=== PATIENT | female | born 1950 | race Caucasian/White ===

== ENCOUNTER 2020-05-02 11:01 | Outpatient (CLI) | payer MEDICARE, SELFPAY ==
[2020-05-02 11:20] LABS: Basophils Percent Auto 0.8 % (0.2-1.2); Eosinophils Absolute Auto 0.1 K/mm3 (0-0.3); Eosinophils Percent Auto 2.1 % (0-4.4); Hematocrit 40.5 % (37.0-47.0); Immature Granulocyte Absolute 0.01 K/mm3 (0.00-0.031); Immature Granulocyte Percent A 0.2 % (0-0.5); Lymphocytes Absolute Auto 1.96 K/mm3 (0.9-3.2); Lymphocytes Percent Auto 40.5 % (18.3-44.2); Mean Corpuscular HGB Conc 32.1 g/dl (32-36); Mean Corpuscular Volume 93.3 fl (80-100); Mean Platelet Volume 10.4 fl (7.4-10.4); Monocytes Absolute Auto 0.4 K/mm3 (0.1-0.6); Monocytes Percent Auto 9.1 % (2.6-8.5); Neutrophils Absolute Auto 2.3 K/mm3 (1.3-6.7); Neutrophils Percent Auto 47.3 % (45.5-73.1); Platelet Count Result 180 k/mm3 (150-375); Red Blood Count 4.34 M/mm3 (4.2-5.4); Red Cell Distribution Width 13.2 % (11.5-14.5); White Blood Count 4.8 K/mm3 (4.5-10.0)
[2020-05-02 12:02] LABS: Iron 83 ug/dL (37-170)
[2020-05-02 12:06] LABS: Alanine Aminotransferase 23 U/L (4-35); Albumin Level 4.2 g/dL (3.5-5.1); Alkaline Phosphatase 92 U/L (38-126); Aspartate Amino Transferase 28 U/L (14-36); Bilirubin,Total 0.5 mg/dL (0.2-1.3); Blood Urea Nitrogen 27 mg/dL (7-17); Calcium 9.4 mg/dL (8.4-10.2); Carbon Dioxide 30 mmol/L (22-30); Chloride 102 mmol/L (98-107); Estimated Glomerular Filt Rate > 60; Glucose 100 mg/dL (65-105); Potassium 4.4 mmol/L (3.4-5.0); Sodium 135 mmol/L (137-145)
[2020-05-02 12:12] LABS: Percent Iron Saturation 29 % (20-50)
== END 2020-05-02 11:02 | disposition home or self-care (01) ==
PROVIDERS: PCP Family Medicine; Visit Provider Internal Medicine Hematology & Oncology
DX: D50.9 Iron deficiency anemia, unspecified (principal)
CPT/HCPCS: 36415; 80053; 82728; 83540; 83550; 85025

== ENCOUNTER 2020-05-21 20:09 | Emergency (ER) | payer MEDICARE, SELFPAY ==
--- NOTE | ~2020-05-21 | CT_ITS ---
EXAMINATION: CT abdomen pelvis w con DATE: 05/21/2020 22:12 INDICATION: Abdominal pain, nausea, vomiting, diarrhea TECHNIQUE: Computed tomography (CT) of the abdomen and pelvis was performed with 100 cc Omnipaque 350 intravenous contrast. Automated exposure control and iterative reconstruction technique were employe d. Exam dose: 522.86 mGy-cm total exam DLP. COMPARISON: 05/05/2018 PET/CT scan FINDINGS: There is mild discoid atelectasis or scarring in the lower lung zones. This examination andrew s not include the non-F-18 FDG-avid superior segment left lower lobe pulmonary nodule, noted on 2017 PET/CT scan, for which follow up CT examination was recommended to exclude any possibility of sl ow growing malignancy. Cardiomegaly. No pericardial or pleural effusion. Small sliding hiatal hernia. Approximately 2 cm right hepatic cyst. The gallbladder is present. No bile duct or pancreatic duct di latation. No pancreatic space-occupying mass lesion or calcification. Normal splenic size. Normal mor phology of the adrenal glands. No renal mass lesion or urinary tract calculus or hydroureteronephrosis. Pessary device is noted. The uterus and adnexal areas are otherwise unremarkable. Diverticulosis of the left and right colon; no CT evidence of diverticulitis. No bowel obstruction, b owel wall thickening, pneumatosis or intraperitoneal free air is evident. There is atherosclerotic calcification of the abdominal aorta and branches but no intraperitoneal or retroperitoneal or pelvic mass lesion or adenopathy or ascites is evident. Degenerative changes of the thoracic and lumbar spine are noted, including particularly prominent apo physeal joint degenerative changes with associated grade 1 anterolisthesis at the L4-5 level and to a lesser extent at L5-S1.. IMPRESSION: Hepatic cysts Small sliding hiatal hernia Diverticulosis of left and right colon; no CT evidence of diverticulitis Reviewed, dictated and finalized at [facility]. Reviewed, dictated and finalized at location B.
[2020-05-21 20:11] VITALS: BP 156/87; PULSE 73; RESP 16; TEMP 36.4; O2SAT 99
--- NOTE | 2020-05-21 20:33 | ED.NAVMDI ---
HPI - Nausea/Vomiting/Diarrhea General Chief complaint: Nausea/Vomiting/Diarrhea Stated complaint: n/v/d Time Seen by Provider: 05/21/20 20:15 Source: RN notes reviewed History of Present Illness HPI Narrative: Patient presents emergency department from home for nausea vomiting. Patient states that she is had 2 episodes today of nausea vomiting taking suppositories no relief. States she has a history of a Jenifer fundoplication 2 years ago for a hiatal hernia which did improve the hiatal hernia but still has mildly persistent hiatal hernia. States she is been noticing discomfort with eating approximately an hour after eating in the upper abdomen for the past several days. She denies any fevers or chills chest pain shortness of breath or any other symptoms. Related Data Allergies Allergy/AdvReac Type Severity Reaction Status Date / Time Sulfa (Sulfonamide Allergy Mild not Verified 01/03/20 14:43 Antibiotics) feeling well Review of Systems Review of Systems: Narrative: Gen.: Denies fevers or chills ENT: Denies congestion Respiratory: Denies shortness of breath or cough CV: Denies chest pain or palpitations GI: HPI denies burning, urgency, frequency or hematuria Musculoskeletal: Denies back pain or muscle pain Neuro: Denies numbness, tingling, weakness or focal weakness Skin: Denies rash Except as documented, all other systems reviewed and negative [facility] Past Medical History Medical History Barretts esophagus Hiatal hernia with gastroesophageal reflux Vitiligo Surgical History Surgical History (Updated 01/04/20 @ 20:57 by Lenka Gaspar MD) H/O vein stripping Family History Family History (Updated 01/04/20 @ 20:59 by Lenka Gaspar MD) Other Cerebrovascular accident Ovarian ca Social History Social History Social History: Smoking status: Never smoker Second hand tobacco smoke exposure: No Alcohol intake: never Substance use: never Substance use type: does not use Gender identity (if verbalized by the patient): Female Exam Narrative: Exam Narrative: APPEARANCE: No acute distress, nontoxic, resting in bed HEENT: Normocephalic, atraumatic, OMM RESPIRATORY: No respiratory distress, clear to auscultation bilaterally with no rhonchi wheezing or rales CARDIOVASCULAR: RRR s murmur ABDOMINAL: Soft, nondistended, tender palpation epigastric, right upper quadrant left upper quadrant, no tenderness right lower quadrant left lower quadrant no rebound or guarding MUSCULOSKELETAl: Moves all extremities. No clubbing, cyanosis or edema. NEURO: Awake and alert. Following commands, speech normal, no focal deficits SKIN:: Warm, dry. Normal Color PSYCHIATRIC: Normal affect/mood Course Course Emergency Course: Discussed with patient results of workup and diagnosis. Discussed need for follow-up with primary care, proper use of medication, and reasons to return to the emergency department. Patient understands and agrees to current treatment plan Vital Signs Vital signs: Vital Signs Temperature 97.5 F L 05/21/20 20:11 Pulse Rate 73 05/21/20 20:11 Respiratory Rate 16 05/21/20 20:11 Blood Pressure 156/87 H 05/21/20 20:11 Pulse Oximetry 99 05/21/20 20:11 Temperature 97.5 F L 05/21/20 20:11 Pulse Rate 73 05/21/20 22:10 Respiratory Rate 18 05/21/20 22:10 Blood Pressure 139/74 05/21/20 22:10 Pulse Oximetry 98 05/21/20 22:10 MDM - Nausea/Vomiting/Diarrhea MDM Narrative Medical decision making narrative: Patient's abdomen is soft without significant pain or signs of surgical abdomen on serial exams. Lab and x-ray evaluations are reviewed and patient is felt to be a reasonable candidate for outpatient management. Patient was instructed as to limitations of x-ray and laboratory evaluation and encouraged to return to ED or primary physi
[2020-05-21 20:49] LABS: Basophils Percent Auto 0.5 % (0.2-1.2); Eosinophils Absolute Auto 0.2 K/mm3 (0-0.3); Eosinophils Percent Auto 2.3 % (0-4.4); Hematocrit 41.2 % (37.0-47.0); Hemoglobin 13.5 g/dL (12.0-15.0); Immature Granulocyte Absolute 0.01 K/mm3 (0.00-0.031); Immature Granulocyte Percent A 0.2 % (0-0.5); Lymphocytes Absolute Auto 1.58 K/mm3 (0.9-3.2); Lymphocytes Percent Auto 23.7 % (18.3-44.2); Mean Corpuscular HGB Conc 32.8 g/dl (32-36); Mean Corpuscular Hemoglobin 30.4 pg (26-34); Mean Corpuscular Volume 92.8 fl (80-100); Mean Platelet Volume 10.5 fl (7.4-10.4); Monocytes Absolute Auto 0.5 K/mm3 (0.1-0.6); Monocytes Percent Auto 7.7 % (2.6-8.5); Neutrophils Absolute Auto 4.4 K/mm3 (1.3-6.7); Neutrophils Percent Auto 65.6 % (45.5-73.1); Platelet Count Result 205 k/mm3 (150-375); Red Blood Count 4.44 M/mm3 (4.2-5.4); Red Cell Distribution Width 13.2 % (11.5-14.5); White Blood Count 6.7 K/mm3 (4.5-10.0)
[2020-05-21 20:54] LABS: Prothrombin Time 12.9 Seconds (11.1-14.7)
[2020-05-21 20:56] LABS: Alanine Aminotransferase 41 U/L (4-35); Albumin Level 4.3 g/dL (3.5-5.1); Alkaline Phosphatase 114 U/L (38-126); Aspartate Amino Transferase 35 U/L (14-36); Bilirubin,Total 0.4 mg/dL (0.2-1.3); Blood Urea Nitrogen 24 mg/dL (7-17); Calcium 9.2 mg/dL (8.4-10.2); Carbon Dioxide 29 mmol/L (22-30); Chloride 100 mmol/L (98-107); Estimated Glomerular Filt Rate > 60; Glucose 124 mg/dL (65-105); Lipase 36 U/L (23-300); Potassium 4.1 mmol/L (3.4-5.0); Sodium 135 mmol/L (137-145)
[2020-05-21] MEDS: SODIUM CHLORIDE 0.9% IV 1,000 ML 999 ML IV CONT (21:01)
[2020-05-21] MEDS: ONDANSETRON INJ 4 MG/2 ML VIAL IV PUSH (21:01)
[2020-05-21 21:37] LABS: Add Urine Microscopic? YES; Appearance Urine Cloudy (Clear); Bacteria Urine Trace /hpf; Bilirubin Urine Negative (Negative); Blood Urine 1+ (Negative); Color Urine Straw (Yellow); Glucose Urine UA Negative (Negative); Ketones Urine Negative (Negative); Leukocyte Esterase Ur 3+ LEU/UL (Negative); Nitrate Urine Negative (Negative); Protein Urine Negative (Negative); Renal Epithelial Cells Urine Rare /hpf (None Seen); Specific Grav Ur 1.014 (1.001-1.035); Squamous Epithelial Cell Urine Few /hpf (Few); Urobilinogen Urine Negative mg/dL (<2.0); WBC Clumps Urine Present /HPF; WBC Urine >75 /hpf
[2020-05-21 22:10] VITALS: BP 139/74; PULSE 73; RESP 18; O2SAT 98
[2020-05-21] MEDS: NITROFURANTOIN MONOHYD MACROCR 100 MG CAP PO (23:17)
--- NOTE | 2020-05-21 23:23 | PC.NURSE ---
Patient discharged at 2324 on 05/21/2020.
== END 2020-05-21 23:23 | disposition home or self-care (01) ==
PROVIDERS: Emergency Provider Emergency Medicine; PCP Family Medicine
DX: N39.0 Urinary tract infection, site not specified (principal); R11.2 Nausea with vomiting, unspecified; K22.70 Barrett's esophagus without dysplasia; K44.9 Diaphragmatic hernia without obstruction or gangrene; R10.13 Epigastric pain; K76.89 Other specified diseases of liver; K57.90 Diverticulosis of intestine, part unspecified, without perforation or abscess without bleeding
CPT/HCPCS: 36415; 74177; 80053; 81001; 83690; 85025; 85610; 85730; 87086; 87088; 96361; 96374; 96375; 99284; A9270; J0131; J2405; J7030; Q9967

== ENCOUNTER 2020-05-26 12:40 | Outpatient (CLI) | payer MEDICARE, SELFPAY ==
[2020-05-26 14:51] LABS: Free T4 Free Thyroxine 1.78 ng/mL (0.78-2.19)
[2020-05-31 12:09] LABS: Triiodothyronine T3 Free 2.4 pg/mL (2.3-4.2)
== END 2020-05-26 12:41 | disposition home or self-care (01) ==
LOC: ANHLAB 12:42
PROVIDERS: PCP Family Medicine; Visit Provider Internal Medicine Hematology & Oncology
DX: E03.9 Hypothyroidism, unspecified (principal)
CPT/HCPCS: 36415; 84439; 84443; 84481

== ENCOUNTER 2020-06-02 06:58 | Outpatient (CLI) | payer MEDICARE, SELFPAY ==
--- NOTE | ~2020-06-02 | CT_ITS ---
EXAMINATION: CT chest w con DATE: 06/02/2020 07:37 INDICATION: Incidental lung nodule follow-up TECHNIQUE: Computed tomography (CT) of the chest was performed with 75 cc Omnipaque 350 intravenous c ontrast. Automated exposure control and iterative reconstruction technique were employed. Exam dose: 157.38 mGy-cm total exam DLP. COMPARISON: 05/03/2019 CT chest FINDINGS: There is a stable 8 mm nodule in the superior segment of the left lower lobe (series 4 imag e 53), not significantly changed in size since 04/22/2018, favoring benign diagnosis. Up to 160 [facility] unit reading suggest calcification, likely a calcified pulmonary granuloma. However, IV contrast material enhancement might simulate calcification. Consider noncontrast CT chest imaging follow-up in 1 year. The lungs are clear of infiltrate or consolidation. No hilar or mediastinal mass lesion or lymphadeno pam. No thoracic aortic aneurysm or dissection. Normal heart size. No pericardial or pleural effusion. Small sliding hiatal hernia. 18 mm right posteromedial hepatic cyst. Included skeletal structures are unremarkable other than degenerative spurring of the thoracic spine. IMPRESSION: Stable 8 mm left lower lobe nodule, likely a calcified pulmonary granuloma; consider [address] noncontrast chest follow-up examination Reviewed, dictated and finalized at [facility]. Reviewed, dictated and finalized at location A. IMPRESSION: Stable 8 mm left lower lobe nodule, likely a calcified pulmonary g ranuloma; consider [address] noncontrast chest follow-up examination
== END 2020-06-02 06:59 | disposition home or self-care (01) ==
PROVIDERS: PCP Family Medicine; Visit Provider Internal Medicine Hematology & Oncology
DX: K44.9 Diaphragmatic hernia without obstruction or gangrene (principal); R91.8 Other nonspecific abnormal finding of lung field
CPT/HCPCS: 71260; Q9967

== ENCOUNTER → 2020-10-13 08:27 | Outpatient (CLI) | payer MEDICARE, SELFPAY ==
--- NOTE | ~2020-10-13 | MM_ITS ---
EXAMINATION: MM screening hugo BI w nury HISTORY: Screening mammogram TECHNIQUE: Craniocaudal and mediolateral oblique 3-D tomosynthesis images were obtained and synthetic 2-D images were generated. CAD analysis was submitted and interpreted. COMPARISON: 04/21/2019, 06/05/2017, 03/14/2000 bilateral digital screening mammogram examinations BREAST PARENCHYMAL COMPOSITION: There are scattered areas of fibroglandular density. FINDINGS: Occasional benign calcifications are again noted. Stable mild fibroglandular asymmetry. The re is no evidence of suspicious mass, calcification, or architectural distortion to suggest malignanc y in either breast. There has been no suspicious interval change. IMPRESSION: 1. No mammographic evidence of malignancy. 2. Recommend routine screening mammography in one year. BI-RADS Category 2: Benign finding(s). Reviewed, dictated and finalized at location A. ONAL COMPUTER SPECIALIST
== END ==
PROVIDERS: PCP Family Medicine; Visit Provider Family Medicine
DX: Z12.31 Encounter for screening mammogram for malignant neoplasm of breast (principal)
CPT/HCPCS: 77063; 77067

== ENCOUNTER 2020-11-27 09:35 | Outpatient (CLI) | payer MEDICARE, SELFPAY ==
[2020-11-27 09:52] LABS: Basophils Absolute Auto 0.1 K/mm3 (0.0-0.1); Basophils Percent Auto 1.1 % (0.2-1.2); Eosinophils Absolute Auto 0.1 K/mm3 (0-0.3); Eosinophils Percent Auto 2.2 % (0-4.4); Hematocrit 44.3 % (37.0-47.0); Hemoglobin 14.2 g/dL (12.0-15.0); Immature Granulocyte Absolute 0.01 K/mm3 (0.00-0.031); Immature Granulocyte Percent A 0.2 % (0-0.5); Lymphocytes Absolute Auto 1.79 K/mm3 (0.9-3.2); Lymphocytes Percent Auto 40.1 % (18.3-44.2); Mean Corpuscular HGB Conc 32.1 g/dl (32-36); Mean Corpuscular Hemoglobin 29.6 pg (26-34); Mean Corpuscular Volume 92.5 fl (80-100); Mean Platelet Volume 10.2 fl (7.4-10.4); Monocytes Absolute Auto 0.5 K/mm3 (0.1-0.6); Monocytes Percent Auto 10.5 % (2.6-8.5); Neutrophils Percent Auto 45.9 % (45.5-73.1); Platelet Count Result 209 k/mm3 (150-375); Red Blood Count 4.79 M/mm3 (4.2-5.4); White Blood Count 4.5 K/mm3 (4.5-10.0)
[2020-11-27 11:28] LABS: Iron 76 ug/dL (37-170)
[2020-11-27 11:38] LABS: Alanine Aminotransferase 29 U/L (4-35); Albumin Level 4.3 g/dL (3.5-5.1); Alkaline Phosphatase 92 U/L (38-126); Aspartate Amino Transferase 29 U/L (14-36); Bilirubin,Total 0.6 mg/dL (0.2-1.3); Blood Urea Nitrogen 19 mg/dL (7-17); Calcium 9.6 mg/dL (8.4-10.2); Carbon Dioxide 31 mmol/L (22-30); Chloride 101 mmol/L (98-107); Estimated Glomerular Filt Rate > 60; Glucose 94 mg/dL (65-105)
[2020-11-27 11:40] LABS: Percent Iron Saturation 24 % (20-50)
[2020-11-27 11:47] LABS: Free T4 Free Thyroxine 1.91 ng/mL (0.78-2.19)
[2020-11-27 11:58] LABS: Thyroid Stimulating Hormone 0.198 uIU/mL (0.465-4.680)
[2020-11-27 14:12] LABS: Anion Gap 5 mmol/L (8-16); Potassium 4.5 mmol/L (3.4-5.0); Sodium 137 mmol/L (137-145)
== END 2020-11-27 09:36 | disposition home or self-care (01) ==
LOC: ANHLAB 09:37
PROVIDERS: PCP Family Medicine; Visit Provider Internal Medicine Hematology & Oncology
DX: D50.9 Iron deficiency anemia, unspecified (principal); E03.9 Hypothyroidism, unspecified
CPT/HCPCS: 36415; 80053; 83540; 83550; 84439; 84443; 84481; 85025

== ENCOUNTER 2021-01-29 08:01 | Outpatient (CLI) | payer MEDICARE, SELFPAY | END 2021-01-29 08:02 | disposition home or self-care (01) | LOC: ANHCOVIDVC 08:02 | PROVIDERS: PCP Family Medicine | DX: Z23 Encounter for immunization (principal) | CPT/HCPCS: 0001A; 91300 ==

== ENCOUNTER 2021-02-19 08:11 | Outpatient (CLI) | payer MEDICARE, SELFPAY | END 2021-02-19 08:12 | disposition home or self-care (01) | LOC: ANHCOVIDVC 08:11 | PROVIDERS: PCP Family Medicine | DX: Z23 Encounter for immunization (principal) | CPT/HCPCS: 0001A; 0002A; 91300 ==

== ENCOUNTER 2021-06-07 09:28 | Outpatient (CLI) | payer MEDICARE, SELFPAY ==
--- NOTE | ~2021-06-07 | CT_ITS ---
EXAMINATION: CT diagnostic chest w con DATE: 06/07/2021 10:33 INDICATION: Lung nodule TECHNIQUE: Computed tomography (CT) of the chest was performed with 75 cc Omnipaque 350 intravenous c ontrast. Automated exposure control and iterative reconstruction technique were employed. Exam dose: 158.32 mGy-cm total exam DLP. COMPARISON: 06/02/2020 CT chest FINDINGS: 10 mm left lower lobe pulmonary nodule contains very prominent central calcification, consi stent with calcified pulmonary granuloma. Stable 4.5 mm opacity is noted in the lingula (series 4 image 57). Chronic discoid scarring in both lower lobes, more prominent on the right No pulmonary infiltrate or consolidation or pulmonary mass lesion is detected. No hilar or mediastinal mass lesion or lymphadenopathy. Normal heart size. No thoracic aortic aneurysm or dissection. No pericardial or pleural effusion. Small sliding hiatal hernia. Diffuse hepatic steatosis. 2 cm right hepatic cyst. Normal morphology of the adrenal glands. Bilateral fat-containing foramen of Bochdalek hernias. No suspicious osteolytic or osteoblastic lesions. Degenerative changes of the cervical, thoracic and lumbar spine. IMPRESSION: 1 cm calcified left lower lobe pulmonary granuloma Stable 4.5 mm lingular opacity No further CT lung follow-up is necessary. Small sliding hiatal hernia Hepatic steatosis 2 cm right hepatic cyst Reviewed, dictated and finalized at [facility]. Reviewed, dictated and finalized at location A.
[2021-06-07 14:52] LABS: Estimated Glomerular Filt Rate > 60
== END 2021-06-07 09:29 | disposition home or self-care (01) ==
LOC: ANHIMG 09:32
PROVIDERS: PCP Family Medicine; Visit Provider Internal Medicine Hematology & Oncology
DX: R91.1 Solitary pulmonary nodule (principal); K76.0 Fatty (change of) liver, not elsewhere classified; K44.9 Diaphragmatic hernia without obstruction or gangrene; K76.89 Other specified diseases of liver
CPT/HCPCS: 36415; 71260; 80053; 85025; Q9967

== ENCOUNTER 2021-06-07 10:44 | Outpatient (CLI) | payer MEDICARE, SELFPAY ==
[2021-06-07 11:02] LABS: Basophils Percent Auto 0.9 % (0.2-1.2); Eosinophils Absolute Auto 0.1 K/mm3 (0-0.3); Eosinophils Percent Auto 2.1 % (0-4.4); Hematocrit 41.2 % (37.0-47.0); Hemoglobin 13.4 g/dL (12.0-15.0); Immature Granulocyte Absolute 0.01 K/mm3 (0.00-0.031); Immature Granulocyte Percent A 0.2 % (0-0.5); Lymphocytes Absolute Auto 1.52 K/mm3 (0.9-3.2); Lymphocytes Percent Auto 34.7 % (18.3-44.2); Mean Corpuscular HGB Conc 32.5 g/dl (32-36); Mean Corpuscular Hemoglobin 29.8 pg (26-34); Mean Corpuscular Volume 91.8 fl (80-100); Monocytes Absolute Auto 0.5 K/mm3 (0.1-0.6); Monocytes Percent Auto 11.4 % (2.6-8.5); Neutrophils Absolute Auto 2.2 K/mm3 (1.3-6.7); Neutrophils Percent Auto 50.7 % (45.5-73.1); Platelet Count Result 194 k/mm3 (150-375); Red Blood Count 4.49 M/mm3 (4.2-5.4); Red Cell Distribution Width 13.7 % (11.5-14.5); White Blood Count 4.4 K/mm3 (4.5-10.0)
[2021-06-07 13:23] LABS: Alanine Aminotransferase 44 U/L (4-35); Albumin Level 4.2 g/dL (3.5-5.1); Alkaline Phosphatase 121 U/L (38-126); Anion Gap 8 mmol/L (8-16); Aspartate Amino Transferase 30 U/L (14-36); Bilirubin,Total 0.6 mg/dL (0.2-1.3); Blood Urea Nitrogen 17 mg/dL (7-17); Calcium 9.6 mg/dL (8.4-10.2); Carbon Dioxide 28 mmol/L (22-30); Chloride 99 mmol/L (98-107); Estimated Glomerular Filt Rate > 60; Glucose 84 mg/dL (65-110); Potassium 4.3 mmol/L (3.4-5.0); Sodium 135 mmol/L (137-145)
== END 2021-06-07 10:45 | disposition home or self-care (01) ==
LOC: ANHLAB 10:48
PROVIDERS: PCP Family Medicine; Visit Provider Internal Medicine Hematology & Oncology
DX: E03.9 Hypothyroidism, unspecified (principal); R91.1 Solitary pulmonary nodule
CPT/HCPCS: 36415; 80053; 85025

== ENCOUNTER 2021-06-12 10:12 | Outpatient (CLI) | payer MEDICARE, SELFPAY ==
[2021-06-12 12:29] LABS: Free T4 Free Thyroxine 1.84 ng/mL (0.78-2.19)
[2021-06-15 05:47] LABS: Triiodothyronine T3 Free 2.5 pg/mL (2.3-4.2)
== END 2021-06-12 10:13 | disposition home or self-care (01) ==
LOC: ANHLAB 10:18
PROVIDERS: PCP Family Medicine; Visit Provider Internal Medicine Hematology & Oncology
DX: E03.9 Hypothyroidism, unspecified (principal)
CPT/HCPCS: 36415; 84439; 84443; 84481

== ENCOUNTER → 2022-01-02 16:12 | Outpatient (CLI) | payer MEDICARE, SELFPAY ==
--- NOTE | ~2022-01-02 | MM_ITS ---
EXAMINATION: MM screening hugo BI w nury HISTORY: Screening TECHNIQUE: Craniocaudal and mediolateral oblique 3-D tomosynthesis images were obtained and synthetic 2-D images were generated. CAD analysis was submitted and interpreted. COMPARISON: Comparison to multiple prior studies sequentially, with oldest reviewed study dated 12/28. BREAST PARENCHYMAL COMPOSITION: The breasts are heterogeneously dense, which may obscure small masses . FINDINGS: There is no evidence of suspicious mass, calcification, or architectural distortion to sugg est malignancy in either breast. There has been no suspicious interval change. IMPRESSION: 1. No mammographic evidence of malignancy. 2. Recommend routine screening mammography in one year. BI-RADS Category 1: Negative Reviewed, dictated and finalized at location A. HT INSPECTOR
== END ==
PROVIDERS: PCP Family Medicine; Visit Provider Family Medicine
DX: Z12.31 Encounter for screening mammogram for malignant neoplasm of breast (principal)
CPT/HCPCS: 77063; 77067

== ENCOUNTER → 2022-05-16 10:59 | Outpatient (CLI) | payer MEDICARE, SELFPAY ==
--- NOTE | ~2022-05-16 | DEXA_ITS ---
Bone Density Report Name: ANAND LUCIANO Age: 72 Sex: Female Ethnicity: White Date of : 1950 Indication: osteopenia; height loss; prior fracture; postmenopausal Referring Provider: YANG CASTILLO Study: Bone densitometry was performed. Exam Date: May 16, 2022 Accession number: [id number] Bone Density: Region BMD T-score Z-score Classification AP Spine (L1-L4) 0.963 -0.8 1.6 Normal Femoral Neck (Left) 0.700 -1.3 0.7 Osteopenia Total Hip (Left) 0.807 -1.1 0.6 Osteopenia Femoral Neck (Right) 0.692 -1.4 0.6 Osteopenia Total Hip (Right) 0.774 -1.4 0.4 Osteopenia Total Hip Mean 0.791 -1.3 0.5 Osteopenia World Health Organization criteria for BMD impression classify patients as: Normal (T-score at or above -1.0), Osteopenia (T-score between -1.0 and -2.5), or Osteoporosis (T-score at or below -2.5). 10-year Fracture Risk(1): Major Osteoporotic Fracture 17% Hip Fracture 2.8% Reported Risk Factors: [place] (), Neck BMD=0.692, BMI=26.4, previous fracture (1) FRAX(R) Version 3.08. Fracture probability calculated for an untreated patient. Fracture probability may be lower if the patient has received treatment. Previous Exams: Region Exam Age BMD T-score BMD Change BMD Change Date g/cm2 vs Baseline vs Previous AP Spine(L1-L4) 05/16/2022 72 0.963 -0.8 0.041* 0.023* 04/21/2019 69 0.940 -1.0 0.017 0.017 12/23/2016 66 0.923 -1.1 Total Hip(Left) 05/16/2022 72 0.807 -1.1 -0.028* -0.029* 04/21/2019 69 0.837 -0.9 0.002 0.002 12/23/2016 66 0.835 -0.9 Total Hip(Right) 05/16/2022 72 0.774 -1.4 -0.020 -0.007 04/21/2019 69 0.781 -1.3 -0.012 -0.012 12/23/2016 66 0.793 -1.2 *Denotes significance at 95% confidence level, LSC for AP Spine = 0.022 g/cm2, LSC for Total Hip = 0.027 g/cm2 Clinical Information Provided by Patient: Has had a low trauma fracture Patient maximum height was 67.0 Menopause Age: 50 Drinks caffeinated beverages Onset of menses at age 10 Number of children 1 Impression: The patient has low bone mass, based on the Right Total Hip T-score. The patient has an estimated ten-year risk of hip fracture of 2.8% and an estimated ten-year risk of major fracture of 17%, based on the WHO FRAX algorithm. The patient has risk factors, including: previous fracture. The BMD for the [place]
== END ==
PROVIDERS: PCP Family Medicine; Visit Provider Nurse Practitioner Gerontology
DX: Z78.0 Asymptomatic menopausal state (principal); M85.852 Other specified disorders of bone density and structure, left thigh; M85.851 Other specified disorders of bone density and structure, right thigh
CPT/HCPCS: 77080

== ENCOUNTER 2022-06-13 09:37 | Outpatient (CLI) | payer MEDICARE, SELFPAY ==
[2022-06-13 12:01] LABS: Basophils Percent Auto 0.6 % (0.2-1.2); Eosinophils Absolute Auto 0.1 K/mm3 (0-0.3); Eosinophils Percent Auto 1.1 % (0-4.4); Hematocrit 43.6 % (37.0-47.0); Hemoglobin 14.1 g/dL (12.0-15.0); Immature Granulocyte Absolute 0.01 K/mm3 (0.00-0.031); Immature Granulocyte Percent A 0.2 % (0-0.5); Lymphocytes Absolute Auto 1.45 K/mm3 (0.9-3.2); Lymphocytes Percent Auto 30.7 % (18.3-44.2); Mean Corpuscular HGB Conc 32.3 g/dl (32-36); Mean Corpuscular Hemoglobin 30.1 pg (26-34); Monocytes Absolute Auto 0.4 K/mm3 (0.1-0.6); Monocytes Percent Auto 8.9 % (2.6-8.5); Neutrophils Absolute Auto 2.8 K/mm3 (1.3-6.7); Neutrophils Percent Auto 58.5 % (45.5-73.1); Platelet Count Result 217 k/mm3 (150-375); Red Blood Count 4.69 M/mm3 (4.2-5.4); Red Cell Distribution Width 13.4 % (11.5-14.5); White Blood Count 4.7 K/mm3 (4.5-10.0)
[2022-06-13 14:10] LABS: Alanine Aminotransferase 23 U/L (6-35); Albumin Level 4.7 g/dL (3.5-5.1); Alkaline Phosphatase 95 U/L (38-126); Anion Gap 8 mmol/L (8-16); Aspartate Amino Transferase 32 U/L (14-36); Bilirubin,Total 0.7 mg/dL (0.2-1.3); Blood Urea Nitrogen 25 mg/dL (7-17); Calcium 9.3 mg/dL (8.4-10.2); Carbon Dioxide 30 mmol/L (22-30); Chloride 100 mmol/L (98-107); Estimated Glomerular Filt Rate > 60; Glucose 85 mg/dL (65-110); Potassium 4.6 mmol/L (3.4-5.0); Sodium 138 mmol/L (137-145)
[2022-06-13 14:24] LABS: Free T4 Free Thyroxine 1.95 ng/mL (0.78-2.19)
[2022-06-16 05:13] LABS: Triiodothyronine T3 Free 2.7 pg/mL (2.3-4.2)
== END 2022-06-13 09:38 | disposition home or self-care (01) ==
LOC: ANHLAB 09:39
PROVIDERS: PCP Family Medicine; Visit Provider Internal Medicine Hematology & Oncology
DX: D50.9 Iron deficiency anemia, unspecified (principal); E03.9 Hypothyroidism, unspecified
CPT/HCPCS: 36415; 80053; 84439; 84443; 84481; 85025

== ENCOUNTER 2023-03-03 10:11 | Outpatient (CLI) | payer MEDICARE, SELFPAY ==
--- NOTE | ~2023-03-03 | XR_ITS ---
Right Knee Technique: AP, lateral, and sunrise views were obtained. Clinical History: Pain Findings: No fracture or dislocation is seen. Osseous alignment is anatomic. Mild tricompartmental de generative spurring noted. Soft tissues are unremarkable. No joint effusion is seen. Impression: Mild tricompartmental degenerative spurring. Reviewed, dictated and finalized at location . Impression: Mild tricompartmental degenerative spurring.
== END 2023-03-03 10:12 | disposition home or self-care (01) ==
PROVIDERS: PCP Family Medicine; Visit Provider Physician Assistant
DX: M25.561 Pain in right knee (principal); M76.891 Other specified enthesopathies of right lower limb, excluding foot
CPT/HCPCS: 73560

== ENCOUNTER → 2023-03-20 10:28 | Outpatient (CLI) | payer MEDICARE, SELFPAY ==
--- NOTE | ~2023-03-20 | MM_ITS ---
EXAMINATION: MM screening hugo BI w nury HISTORY: Screening mammogram, family history of breast cancer in her sister. TECHNIQUE: Craniocaudal and mediolateral oblique 3-D tomosynthesis images were obtained and synthetic 2-D images were generated. CAD analysis was submitted and interpreted. COMPARISON: 01/02/2022, 10/13/2020, 04/21/2019 BREAST PARENCHYMAL COMPOSITION: There are scattered areas of fibroglandular density. FINDINGS: No suspicious mass, calcification, or architectural distortion are identified in either estrada ast to suggest malignancy. There has been no suspicious interval change. IMPRESSION: 1. No mammographic evidence of malignancy. 2. Recommend routine screening mammography in one year. BI-RADS Category 1: Negative Reviewed, dictated and finalized at location A.
== END ==
PROVIDERS: PCP Family Medicine; Visit Provider Nurse Practitioner Gerontology
DX: Z12.31 Encounter for screening mammogram for malignant neoplasm of breast (principal)
CPT/HCPCS: 77063; 77067

== ENCOUNTER → 2023-05-24 08:46 | Outpatient (CLI) | payer MEDICARE, SELFPAY ==
--- NOTE | ~2023-05-24 | US_ITS ---
EXAMINATION: US thyroid DATE: 05/24/2023 09:22 INDICATION: Enlarged thyroid. TECHNIQUE: Multiple ultrasound images of the thyroid were obtained. COMPARISON: Chest CT 06/07/2021 FINDINGS: The right thyroid lobe measures 2.3 x 0.7 x 0.9 cm. The left thyroid lobe measures 2.3 x 0.5 x 0.6 c m. The thyroid demonstrates heterogeneous echogenicity. Vascularity is normal. No discrete nodule. IMPRESSION: 1. Small, heterogeneous thyroid, likely chronic lymphocytic (Danni) thyroiditis. Reviewed, dictated and finalized at location A. IMPRESSION: 1. Small, heterogeneous thyroid, likely chronic lymphocytic (Danni) thyroid itis.
== END ==
PROVIDERS: PCP Family Medicine; Visit Provider Physician Assistant
DX: E04.9 Nontoxic goiter, unspecified (principal)
CPT/HCPCS: 76536

== ENCOUNTER 2024-04-13 15:07 | Outpatient (CLI) | payer MEDICARE, SELFPAY ==
--- NOTE | ~2024-04-13 | MM_ITS ---
EXAMINATION: MM screening hugo BI w nury HISTORY: Screening TECHNIQUE: Craniocaudal and mediolateral oblique 3-D tomosynthesis images were obtained and synthetic 2-D images were generated. CAD analysis was submitted and interpreted. COMPARISON: Comparison to multiple prior studies sequentially, with oldest reviewed study dated 03/14. BREAST PARENCHYMAL COMPOSITION: Dense: The breasts are heterogeneously dense, which may obscure small masses FINDINGS: There is no evidence of suspicious mass, calcification, or architectural distortion to sugg est malignancy in either breast. There has been no suspicious interval change. IMPRESSION: 1. No mammographic evidence of malignancy. 2. Recommend routine screening mammography in one year. BI-RADS Category 1: Negative Reviewed, dictated and finalized at location B.
== END 2024-04-13 15:08 ==
LOC: MICIMG 15:08
PROVIDERS: PCP Family Medicine; Visit Provider Family Medicine
DX: Z12.31 Encounter for screening mammogram for malignant neoplasm of breast (principal)
CPT/HCPCS: 77063; 77067

== ENCOUNTER 2024-06-29 09:11 | Outpatient (CLI) | payer MEDICARE, SELFPAY ==
--- NOTE | ~2024-06-29 | XR_ITS ---
XR chest 2V Ordering provider: Lenka Gaspar MD History: 74 years Female with . Shortness of breath, HX HBP . Comparison: April 03, 2018 FINDINGS: MEDIASTINUM: The cardiac silhouette is not enlarged. LUNGS: No infiltrates, effusions or pneumothorax. Emphysematous changes of the lungs. OTHER: No free air under the diaphragm. Degenerative changes of the spine. IMPRESSION: No acute cardiopulmonary pathology. Emphysematous changes of the lungs. Reviewed, dictated and finalized at location A.
== END 2024-06-29 09:12 | disposition home or self-care (01) ==
PROVIDERS: PCP Family Medicine; Visit Provider Family Medicine
DX: R06.02 Shortness of breath (principal)
CPT/HCPCS: 71046

== ENCOUNTER 2025-01-24 09:36 | Outpatient (CLI) | payer MEDICARE, SELFPAY ==
--- NOTE | ~2025-01-24 | CT_ITS ---
Non-contrast CT scan of the Abdomen Clinical indication: Incisional hernia Technique: 2.5 mm axial scans were obtained through the abdomen without intravenous or oral contrast . Dose reduction technique was used on this scan by utilizing automated exposure control and iterativ e reconstruction technique. The dose-length product (DLP) was 272.32 mGy-cm. Findings: Images through the lung bases reveal no abnormalities. Small hiatal hernia noted. There is no evidence of renal or ureteral calculi. The kidneys and the ureters are nondilated. Simple hepatic cyst present. The spleen, pancreas, gallbladder, and adrenals appear normal. There are atherosclerotic calcifications of the aorta. . Visualized bowel loops are unremarkable.. No ascites. Tiny fat-containing ventral hernia noted in the midline superior to the umbilicus. Impression: Small hiatal hernia. Tiny ventral fat-containing hernia, as above. Reviewed, dictated and finalized at [facility]. Impression: Small hiatal hernia. Tiny ventral fat-containing hernia, as above.
--- OUTSIDE RECORDS SUMMARY | 2025-01-24 10:51 | XMS_ITS | Clinical Summary ---
Author Organization [facility] Address [address] [place] [address] Care Team Providers Care Sales And Service Representative Name Role Phone Sumanth Ayala MD Primary Care Provider Allergies Active Allergy Reactions Criticality Noted Date Comments Sulfa (Sulfonamide Antibiotics) Nausea only,Unknown Low 05/19/2018 Sulfanilamide Medications losartan (COZAAR) 25 mg tablet Take 1 tablet (25 mg total) by mouth daily States she goes off and on Active atorvastatin (LIPITOR) 10 mg tablet Take 1 tablet (10 mg total) by mouth 2 (two) times a week 8 Active famotidine (PEPCID) 10 mg tablet Take 1 tablet (10 mg total) by mouth 2 (two) times a day Active ALPRAZolam (XANAX) 0.25 mg tablet 1 Active ondansetron ODT (ZOFRAN-ODT) 8 mg disintegrating tablet Take 1 tablet (8 mg total) by mouth every 6 (six) hours as needed Active levothyroxine (SYNTHROID) 100 mcg tablet Take 1 tablet (100 mcg total) by mouth daily 2 Active polyethylene glycol (GoLYTELY) 236-22.74-6.74 -5.86 gram solution TAKE HALF OF THE PREP SOLUTION AT 6:00 PM THE EVENING BEFORE COLON TAKE THE OTHER HALF 4 HOURS BEFORE ARRIVAL OF COLON AT 6:30 AM. 4000 mL 5 Active Active Problems Problem Noted Date Diagnosed Date History of colon polyps 12/17/2024 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 12/07/2021 Overview (12/07/2021): Added automatically from request for surgery [id number] History of COVID-19 07/26/2021 Non-rheumatic mitral regurgitation 12/07/2020 Family history of premature coronary artery dise ase 09/13/2020 KWONG (dyspnea on exertion) 09/13/2020 Hypothyroidism 09/13/2020 Hiatal hernia 06/01/2018 Overview (06/01/2018): Added automatically from request for surgery [id number] Varicose veins of lower extremity 09/12/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 09/12/2015 Hypertension 06/23/2015 Hyperlipidemia 06/23/2015 Encounters Date Type Department Care Team Description 12/17/2024 Orders Only [facility] [address] [place] [address] Amalia Macedo MD History of colon polyps (Primary Dx); 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 12/17/2024 Telephone [facility] [address] [place] [address] [place] [address] Nicole Keller RMA COLON/EGD (GI Pre Procedure Assessment: the colonoscopy/EGD is scheduled on 01-31-25 @ 12:[address] Macedo at the [facility] Split Dose Prep Instructions were sent through [employer] today, per patient.) from Last 3 Months Immunizations Immunization Administration Dates Next Due Pfizer SARS-CoV-2 Monovalent Vaccination (12+ Yrs) PURPLE 02/19/2021 Surgical History Surgery Date Site/Laterality Comments TUBAL LIGATION DILATION AND CURETTAGE OF UTERUS ABLATION SAPHENOUS VEIN W/ RFA POLYPECTOMY COLONOSCOPY UPPER GASTROINTESTINAL ENDOSCOPY Medical History Medical History Date Comments Disorder of thyroid Thyroid dise ase Hx Other Medical lind's esoph michael; Comments: GFC 05/10/2014 - Hx Other Medical vitiligo Hypothyroidism Hypertension Arthritis Anemia Colon polyp History of Jenifer fundoplication Lind esophagus Heart murmur Diverticulitis Anxiety Family History Medical History Relation Name Comments car accident Brother 1 Lung cancer Brother 2 Stroke Father Stroke; Cause o f : Stroke/Family history of cerebrovascular accident - (Added by TW Conv) Cancer Mother Family history of malignant neoplasm - (Added by TW Conv) Colon cancer Mother Ovarian cancer Mother Cancer -ovari an; Cause of : Cancer -ovarian Lung cancer Sister 1 Lung cancer Sister 2 Relation Name Status Comments Brother 1 (Age 20) Brother 2 Alive Father (Age 50) Mother (Age 60) Sister 1 Alive Sister 2 Alive Social History Tobacco Use Types Packs/Day Years Used Date Smoking Tobacco: Former Cigarettes 1975 Smokeless Tobacco: Never Alcohol Use Standard Drinks/Week Comments Yes 1 (1 standard drink = 0.6 oz pur e alcohol) 1 glass per month AUDIT-C Answer Date Recorded Q1: How often do you have a drink containing alc ohol? Monthly or less 01/28/2022 Q2: How many drinks containi ng alcohol do you have on a typical day when you are drinking? 1 or 2 01/28/2022 Q3: How often do you have si x or more drinks on one occasion? Never 01/28/2022 Comments No Sex and Gender Information Value Date Recorded Sex Assigned at Not on file Legal Sex Female 10:15 AM MANAGER PUBLISHING Gender Identity Not on file Sexual Orientation Not on file Obstetrics History Last Filed Vital Signs Vital Sign Reading Time Taken Comments Blood Pressure 131/75 02/25/2024 11:17 AM CDT Pulse 62 02/23/2024 8:11 AM CDT Temperature 36.1 C (97 F) 01/28/2022 11:10 AM CDT Respiratory Rate 20 01/28/2022 11:30 AM CDT Oxygen Saturation 98% 02/23/2024 8:11 AM CDT Inhaled Oxygen Concentration - - Weight 72.6 kg (160 lb) 12/17/2024 3:10 PM MANAGER PUBLISHING Height 167.6 cm (5' 6 ) 12/17/2024 3:10 PM MANAGER PUBLISHING Body Mass Index 25.82 12/17/2024 3:10 PM MANAGER PUBLISHING Plan of Treatment Upcoming Encounters Date Type Department Care Team (Late st Contact Info) Description 01/31/2025 12:30 PM CDT Hospital Encounter [facility] [address] [place] [address] Amalia Macedo MD [address] [facility] [address] [place] [address] 01/31/2025 12:30 PM CDT - 01/31/2025 1:30 PM CDT Surgery [facility] [address] [place] [address] Amalia Macedo MD [address] [place] [address] COLONOSCOPY Scheduled Procedures Name Priority Associated Diagnoses Date/Ti me COLONOSCOPY History of colon polyps 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 01/31/2025 12:30 PM CDT ESOPHAGOGASTRODUODENOSCOPY History of colon polyps 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 01/31/2025 12:30 PM CDT Health Maintenance Due Date Last Done Comments Depression Screening 1950 Hepatitis C Screening 1950 Osteoporosis Screening-Bone Density Scan 1950 DTaP/Tdap/Td Vaccine (1 - Tdap) 02/01/1959 Hepatitis B Screening 02/01/1966 Pneumococcal vaccine 65+ (1 of 1 - PCV) 02/01/1998 Zoster Vaccine (1 of 2) 02/01/1998 Well Visit 65+ 02/01/2013 Fall Risk Assessment 01/28/2023 01/28/2022 Covid-19 Vaccine (2 - season) 07/18/202403/2021 Influenza Vaccine (#1) 2024 Colon Cancer Screening-CT Colonography Discontinued Colon Cancer Screening-Colonoscopy Discontinued 2018 Colon Cancer Screening-DNA Stool Discontinued 01/22/20 19 Colon Cancer Screening-FIT Discontinued 01/21/2019 Colon Cancer Screening-FOBT Discontinued 01/21/2019 Colon Cancer Screening-Sigmoidoscopy Discontinued 05/2019 Colorectal Cancer Screening Discontinued Procedures Procedure Name Priority Date/Time Associated Diagnosis Comments COLONOSCOPY 01/21/2019 12:56 PM MANAGER PUBLISHING from Last 3 Months or Most Recently Relevant to Health Maintenance Results * COLONOSCOPY (01/21/2019 12:56 PM MANAGER PUBLISHING) Anatomical Region Laterality Modality Other Narrative Procedure Note Amalia Macedo MD - 01/21/2019 12:56 PM [facility] Patient Name: Lisa Luciano Procedure Date: 01/21/2019 12:56 PM Date of : 1950 Admit Type: Outpatient Age: 68 Gender: Female Attending MD: Amalia Macedo M.D. Room: [facility] ENDOSCOPY ROOM 3 Note Status: Finalized Procedure: Colonoscopy Indications: Surveillance: Personal history of colonic polyps (unknown histology) on last colonoscopy more than 3 years ago, Last colonoscopy: date unknown (unable to locate last colonoscopy report) Referring MD: Allen Mckeon MD, PHD Providers: Amalia Macedo M.D. Medicines: Monitored Anesthesia Care Complications: No immediate complications. Estimated Blood Loss: Estimated blood loss: none. Procedure: Pre-Anesthesia Assessment: - Immediately prior to administration ofmedications, the patient was re-assessed for adequacy to receive sedatives. - The risks and benefits of the procedure and the sedation options and risks were discussed with the patient. All questions were answered and informed consent was obtained. The benefits, risks and alternatives of theprocedure and sedation were discussed and informed consent was obtained. All questions were answered. Please referto the signed informed consent document in the medical record. The scope was passed under direct vision.The CF [id number] endoscope was introduced throughthe anus and advanced to the cecum, identified by appendiceal orifice and ileocecal valve. The colonoscopy was performed without difficulty. The patient tolerated the procedure well. The quality of the bowel preparation was evaluated using the BBPS ([place] Bowel Preparation Scale) with scores of:Right Colon = 2, Transverse Colon = 3 and Left Colon = 3.The total BBPS score equals 8. The quality of the bowel preparation was excellent. The bowel preparationused was polyethylene glycol (PEG). Bowel prep was administered using a split dose. The quality of the bowel preparation was good. Findings: Multiple large-mouthed diverticula were found in the entire colon. The exam was otherwise without abnormality. Non-bleeding internal hemorrhoids were found during retroflexion. The hemorrhoids were small. Impression: - Diverticulosis in the entire examined colon. - Small internal hemorrhoids - The examination was otherwise normal. - No specimens collected. Recommendation: - [facility] Attending Participation: I was present and participated during the entire procedure, including non-scott portions. Electronically signed by Amalia Macedo MD Amalia Macedo M.D. 01/21/2019 1:19:26 PM . Number of Addenda: 0 Note Initiated On: 01/21/2019 12:56 PM Recognized by the [employer] for promoting quality in endoscopy us Amalia Macedo MD ENDOSCOPY PROCEDURES Final Res ult from Last 3 Months or Most Recently Relevant to Health Maintenance Insurance MEDICARE [facility] MEDICARE [facility] MEDICARE [facility] Advance Directives For more information, please contact: [phone] * Full Code (Latest Code Status on File) Date Activated Date Inactivated Comments 01/28/2022 10:05 AM 01/28/2022 3:57 PM * Full Code Date Activated Date Inactivated Comments 01/21/2019 11:42 AM 01/21/2019 6:42 PM * Full Code Date Activated Date Inactivated Comments 07/06/2018 3:57 PM 07/08/2018 1:28 PM * Full Code Date Activated Date Inactivated Comments 06/24/2018 8:35 AM 06/24/2018 12:53 PM Care Teams Sales And Service Representative Relationship Specialty Start Date End Date Sumanth Ayala MD [address] [facility] [address] [place] [address] PCP - General Family Medicine 12/17/24
--- OUTSIDE RECORDS SUMMARY | 2025-01-24 10:51 | XMS_ITS | CONTINUITY OF CARE DOCUMENT ---
Author Name alicia aaronedwin Address Unknown Organization [facility] Address [address] [place] [address] Phone [phone] Care Team Providers Care Criminalist Name Role Phone Nixon Middleton MD Unavailable [phone] SHANNAN OWEN MD Unavailable SHANNAN OWEN MD Unavailable PROBLEMS Condition Status Date Provider Notes Cardiology examination active Nixon Michele Hypertension active Nixon Middleton MD Chronic venous hypertension (idiopathic) with inflammation of bilateral lower extremity active Nixon Middleton MD Cardiac murmur active Nixon Middleton MD ENCOUNTERS Date Type Provider Location Encounter Diag nosis 1 - 1 In-person encounter Office Visit Nixon Middleton MD [facility] 8 - 8 In-person encounter Office Visit Nixon Middletno MD [facility] Cardiology examinationHypertensionChronic venous hypertension (idiopathic) with inflammation of bilateral lower extremityCardiac murmur VITAL SIGNS Date Observation Value Provider Body Mass Index (Ratio) 26.14 kg/m2 Ana Foy blood pressure, systolic 140 mm[Hg] She devante Bryant blood pressure, diastolic 88 mm[Hg] Sh ijeoma Bryant blood pressure, cuff size regular Goldy Bryant pulse rate 77 /min Rosemary Bryant respiratory rate E&M 20 /min Rosemary Bryant oxygen saturation, oximetry 100 % Rosemary Bryant weight E&M 162 [lb_av] Rosemary Bryant height E&M 66 [in_i] Rosemary Bryant Body Mass Index (Ratio) 25.82 kg/m2 Vern Rai blood pressure, diastolic 103 mm[Hg] Carmelina rosalva Garcia blood pressure, systolic 157 mm[Hg] Tiana slick Garcia oxygen saturation, oximetry 99 % Tamiko Jose pulse rate 67 /min Tamiko Jose weight E&M 160 [lb_av] Tamiko Jose height E&M 66 [in_i] Tamiko Jose blood pressure, cuff size large An rosalva Garcia HISTORY OF MEDICATION USE Medication Status Instructions Dates Provider Indications Com ments losartan 25 mg tablet active Rosemary Bryant atorvastatin 10 mg tablet active Rosemary Bryant levothyroxine 100 mcg tablet active Rosemary Bryant SOCIAL HISTORY Date Observation Value Provider social history E&M S moking History: Adria najera has never smoked. Nixon Middleton MD social history reviewed E&M reviewed - no changes required Nixon Middleton MD smoking status Never smoker Rosemaryjoselyn Bryant social history E&M S moking History: Adria najera has never smoked. Nixon Middleton MD social history reviewed E&M reviewed - no changes required Nixon Middleton MD smoking status Never smoker Tamiko Garcia INSURANCE PROVIDERS Payer name Policy type / Coverage type Nunez red green party ID [place] AARP Commercial insurance company [id number] [place] [id number] ADVANCE DIRECTIVES Name Date DISCUSSED - NO DECISION MADE TREATMENT PLAN Date Name Performer [id number],C, BP is elevated and she will contact Dr. Kern, her line camera operator. 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 She tried support stockings without success. We discussed venography with IVUS and Venaseal . AT this time she prefers not to have a procedure. Nixon Middleton MD [id number],C, B P today: 157/103 Julio Rai [id number],C,W ill obtain arterial venous duplex for further assessment. If she has significant venous insufficiency, we will consider venography/IVUS and venaseal. Julio Rai Cardiology: BP is el evated and she will contact Dr. Kern, her line camera operator. 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 She tried support stockings without success. We discussed venography with IVUS and Venaseal . AT this time she prefers not to have a procedure. Nixon Middleton MD Cardiology: B P today: 157/103 Julio Rai Cardiology:Will obta in arterial venous duplex for further assessment. If she has significant venous insufficiency, we will consider venography/IVUS and venaseal. Julio Rai Date Name Venous Doppler Bilat eral LE - Reflux Arterial Duplex Bi-L ower EX HISTORY OF PROCEDURES Procedure Date Procedure Name Provider Procedure Notes S tatus EKG Nixon Middleton MD completed
--- OUTSIDE RECORDS SUMMARY | 2025-01-24 10:51 | XMS_ITS | Data Portability ---
Author Organization [facility] [employer], [facility] Address [address] [address] Assessment Encounter Date Assessment Date Assessment LastModified by Organization Details LastModified Time 10/09/2016 10/09/2016 Patient with right low back, R hip, and RLE pain c/w sciatica. PMH includes Pena's Esophagus. [email or web address] Not available 10/09/2016 14:50:51 Plan of Treatment Reminders Order Date Submit Date Provider Last Modified By Organization Details Last Modified Time Details Appointments None recorded. Lab None recorded. Referral None recorded. Procedures None recorded. Surgeries None recorded. Imaging XR, hip, unilateral 2015 016 Not available 6 04:28:25 XR, knee 2015 016 Not available 6 04:28:28 XR, lumbosacral spine, 2 or 3 view 2015 016 Not available 6 04:28:28 Medication Orders None recorded. Patient TargetsNo targets recorded. Patient Instructions Encounter Date Encounter Id Patient Instructions Last Modified By Organization Details Last Modified Time 10/09/2016 [id number] low back arthritis: exercises Not available 10/17/2016 09:23:31 knee arthritis: care instructions Not available 10/17/2016 09:23:31 hip pain: care instructions Not available 10/17/2016 09:23:31 knee pain or injury: care instructions Not available 10/17/2016 09:23:31 back care and preventing injuries: care instructions Not available 10/17/2016 09:23:31 getting back to normal after low back pain: care instructions Not available 10/17/2016 09:23:31 learning about relief for back pain Not available 10/17/2016 09:23:31 Reason for Referral None Reported. Medical Equipment None Reported. Vitals None Recorded Social History None recorded. Functional Status None recorded. Mental Status None recorded. Family History Nothing Reported. Medical History No medical history recorded. Gynecological HistoryNo gynecological history recorded. Obstetrics History GPAL:G 0 P 0 0 0 0 Past Encounters Encounter ID Performer Location Encounter Start Date Encounter Closed Date Diagnosis/Indication Diagnosis SNOMED-CT Code Diagnosis ICD10 Code Diagnosis Note [id number] Jeanie Smith [facility] [address] [place] [address] 10/09/2016 13:29:46 10/09/2016 14:53:10 Hip pain 38515938 M25.551 Low back pain 970305991 M54.5 Knee pain 44772785 M25.5 61 Osteoarthr itis of knee 088117184 M17.11 Lumbar spo ndylosis with myelopathy 53622145 M47.16 Health Concerns Section Related Observation LastModified by Organization Detai ls LastModified Time None Recorded Concern Status LastModified by Organization Details LastModified Time None Recorded Advance Directives Directive None Recorded Payers Encounter Date Sequence Insurance Name Policy Number Policy Hayden Covered Member ID Hayden Member ID Guarantor Name 10/09/2016 2 [employer] HE[employer]ARE - OPTIONS Lisa Bond [id number] Lisa Bond 10/09/2016 1 [place] Lisa Bond [id number] Lisa Bond Notes Date Note Type Note Provider Name and Address Organization Details Recorded Time 10/09/2016 text/html Patient presents with 3/10 pain to her right hip for 10 years that radiates to her RLE. She states the pain is worse at night and repositioning helps. She denies numbness, foot drop, or injury. She reports associated right sided low back pain. She takes nothing OTC for her pain. She also complains of right knee pain for the past year with associated catching and locking. She denies injury. She states the pain in her knee is worsened with moving from sitting to standing. She works out at the gym several times a week. Jeanie Smith [address], [place], [address], [facility], [facility] 10/21/2016 10:52:22 OBGyn Episode No OBEpisode recorded.
--- OUTSIDE RECORDS SUMMARY | 2025-01-24 10:51 | XMS_ITS | Clinical Summary ---
Author Organization [facility] Address [facility] [place] [address] Care Team Providers Care Research And Development Researcher Name Role Phone Unavailable Primary Care Provider Unavailabl e Social History Tobacco Use Types Packs/Day Years Used Date Smoking Tobacco: Never Assessed Comments Unknown Sex and Gender Information Value Date Recorded Sex Assigned at Not on file Legal Sex Female 7:51 PM CDT Gender Identity Not on file Sexual Orientation Not on file Plan of Treatment Health Maintenance Due Date Last Done Comments Hepatitis C 02/01/1966 DTaP, Tdap and Td Vaccines ( 1 - Tdap) 02/01/1967 Zoster Vaccines (1 of 2) 02/01/1998 Dexa Scan (General) 02/01/2013 Pneumococcal Vaccine: 65+ Ye ars (1 of 1 - PCV) 02/01/2013 RSV Immunization or 60+ Years (1 - 1-dose 75+ series) 02/01/2023 COVID-19 Vaccine (2023-2 5 season) 2024 Influenza Adult (#1) 2024 Meningococcal B Vaccine Aged Out No l onger eligible based on patient's age to complete this topic Meningococcal Vaccine Aged Out No carlos rod eligible based on patient's age to complete this topic RSV Immunizations Under 20 Months Aged Out No longer eligible based on patient's age to complete this topic
--- OUTSIDE RECORDS SUMMARY | 2025-01-24 10:51 | XMS_ITS | Referral Summary ---
Author Organization [facility] Address [address] [place] [address] Care Team Providers Care Sales Representative Sales Manager Name Role Phone Sumanth Ayala MD Primary Care Provider Encounters Date Type Department Care Team Description 12/17/2024 Orders Only [facility] [address] [facility] [facility] [address] [place] [address] Amalia Macedo MD History of colon polyps (Primary Dx); Pena's esophagus without dysplasia 12/17/2024 Telephone [facility] [address] [facility] 12[address] [place] [address] [place] [address] Nicole Keller RMA COLON/EGD (GI Pre Procedure Assessment: the colonoscopy/EGD is scheduled on 01-31-25 @ 12:[address] Macedo at the [facility]./Kaylin Split Dose Prep Instructions were sent through [employer] today, per patient.) from Last 3 Months Allergies Active Allergy Reactions Criticality Noted Date [...] Diagnosed Date History of colon polyps 12/17/2024 Pena's esophagus without dysplasia 12/07/2021 Overview (12/07/2021): Added automatically from request for surgery [id number] History of COVID-19 07/26/2021 Non-rheumatic mitral regurgitation 12/07/2020 Family history of premature coronary artery dise ase 09/13/2020 KWONG (dyspnea on exertion) 09/13/2020 Hypothyroidism 09/13/2020 Hiatal hernia 06/01/2018 Overview (06/01/2018): Added automatically from request for surgery [id number] Varicose veins of lower extremity 09/12/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 09/12/2015 Hypertension 06/23/2015 Hyperlipidemia 06/23/2015 Immunizations Immunization Administration Dates Next Due Pfizer SARS-CoV-2 Monovalent Vaccination (12+ Yrs) PURPLE 02/19/2021 Social History Tobacco Use Types Packs/Day Years Used Date Smoking Tobacco: Former Cigarettes 1 1975 Smokeless Tobacco: Never Alcohol Use Standard [...] on file Legal Sex Female 10:15 AM HIDE SALTER Gender Identity Not on file Sexual Orientation Not on file Last Filed Vital Signs Vital Sign Reading Time Taken Comments Blood Pressure 131/75 02/25/2024 11:17 AM CDT Pulse 62 02/23/2024 8:11 AM CDT Temperature 36.1 C (97 F) 01/28/2022 11:10 AM CDT Respiratory Rate 20 01/28/2022 11:30 AM CDT Oxygen Saturation 98% 02/23/2024 8:11 AM CDT Inhaled Oxygen Concentration - - Weight 72.6 kg (160 lb) 12/17/2024 3:10 PM HIDE SALTER Height 167.6 cm (5' 6 ) 12/17/2024 3:10 PM HIDE SALTER Body Mass Index 25.82 12/17/2024 3:10 PM HIDE SALTER Plan of Treatment Upcoming Encounters Date Type Department Care Team (Late st Contact Info) Description 01/31/2025 12:30 PM CDT Hospital Encounter [facility] [place] [id number] [address] [address] Amalia Macedo MD [address] [address] 01/31/2025 12:30 PM CDT - 01/31/2025 1:30 PM CDT Surgery [facility] [address] [address] Amalia Macedo MD [address] [address] COLONOSCOPY Scheduled Procedures Name Priority Associated Diagnoses Date/Ti me COLONOSCOPY History of colon polyps Pena's esophagus without dysplasia 01/31/2025 12:30 PM CDT ESOPHAGOGASTRODUODENOSCOPY History of colon polyps Pena's esophagus without dysplasia 01/31/2025 12:30 PM CDT Procedures Procedure Name Priority Date/Time Associated Diagnosis Comments COLONOSCOPY 01/21/2019 12:56 PM HIDE SALTER from Last 3 Months or Most Recently Relevant to Health Maintenance Results * COLONOSCOPY (01/21/2019 12:56 PM HIDE SALTER) Anatomical Region Laterality Modality Other Narrative Procedure Note Amalia Macedo MD - 01/21/2019 12:56 PM [facility] Patient Name: Lisa Luciano Procedure Date: 01/21/2019 12:56 PM Date of : 1950 Admit Type: Outpatient Age: 68 Gender: Female Attending MD: Amlaia Macedo M.D. Room: [facility] ENDOSCOPY ROOM 3 Note Status: Finalized [...] The scope was passed under direct vision.The [id number] endoscope was introduced throughthe anus and advanced to the cecum, identified by appendiceal orifice and ileocecal valve. The colonoscopy was performed without difficulty. The patient tolerated the procedure well. The quality of the bowel preparation was evaluated using the BBPS (Pacific Bowel Preparation Scale) with scores of:Right Colon [...] Recommendation: - [facility] Attending Participation: I was present and participated during the entire procedure, including non-scott portions. Electronically signed by Amalia Macedo MD Amalia Macedo M.D. 01/21/2019 1:19:26 PM . Number of Addenda: 0 Note Initiated On: 01/21/2019 12:56 PM Recognized by the [employer] for promoting quality in endoscopy us Amalia Macedo MD ENDOSCOPY PROCEDURES Final Res ult from Last 3 Months or Most Recently Relevant to Health Maintenance Insurance MEDICARE [facility] MEDICARE [facility] MEDICARE [facility] Advance Directives For more information, please contact: [phone] * Full Code (Latest Code Status on [...] AM 06/24/2018 12:53 PM Care Teams Sales Representative Sales Manager Relationship Specialty Start Date End Date Sumanth Ayala MD [address] [facility] [address] [place] [address] PCP - General Family Medicine 12/17/24
--- OUTSIDE RECORDS SUMMARY | 2025-01-24 10:51 | XMS_ITS | Clinical Summary ---
Author Organization [facility] Address [address] [place] [address] Care Team Providers Care Stitch Cleaner Name Role Phone Lenka Gaspar MD Primary Care Provider [phone] Allergies Active Allergy Reactions Criticality Noted Date Comments Sulfa (Sulfonamide Antibiotics) Weakness,Unknown Low 05/19/2018 Other reaction(s): Nausea only Medications levothyroxine 112 mcg tablet Take 100 mcg by mouth daily in the morning. Active losartan (COZAAR) 25 mg tablet Take 25 mg by mouth daily. Active atorvastatin (LIPITOR) 10 mg tablet Take 10 mg by mouth late in the day. Active aluminum hydroxide-magne sium trisilicate-alg inate (GAVISCON) 80-20 mg Tablet, Chewable Take 2 Tablets by mouth. Active famotidine (PEPCID) 10 mg tablet Take 10 mg by mouth. Active ALPRAZolam (XANAX) 0.25 mg tablet Take 0.25 mg by mouth 2 times daily as needed. 04/11/2022 Active Active Problems Problem Noted Date Diagnosed Date Other specified hypothyroidism 11/30/2020 Incidental lung nodule 04/28/2018 Iron deficiency anemia 04/16/2018 Family History Medical History Relation Name Comments Heart Disease Father Cancer Mother Cancer Sister 1 Cancer Sister 2 Diabetes Sister 3 Other Sister 4 Relation Name Status Comments Father Mother Sister 1 Sister 2 Sister 3 Alive Sister 4 Alive Social History Tobacco Use Types Packs/Day Years Used Date Smoking Tobacco: Former Cigarettes 1 30 0 04/16/1955 - 04/16/1985 Alcohol Use Standard Drinks/Week Comments Yes 0 (1 standard drink = 0.6 oz pur e alcohol) occasional Comments No Sex and Gender Information Value Date Recorded Sex Assigned at Not on file Legal Sex Female 11:19 AM CDT Gender Identity Not on file Sexual Orientation Not on file Last Filed Vital Signs Vital Sign Reading Time Taken Comments Blood Pressure 131/80 06/21/2022 12:25 PM CDT Pulse 82 06/21/2022 12:25 PM CDT Temperature 36.6 C (97.8 F) 06/21/2022 12:25 PM CDT Respiratory Rate 18 05/28/2018 1:30 PM CDT Oxygen Saturation 97% 06/21/2022 12:25 PM CDT Inhaled Oxygen Concentration - - Weight 73.8 kg (162 lb 9.6 oz) 06/21/2022 12:25 PM CDT Height 167.6 cm (5' 6 ) 06/21/2022 12:25 PM CDT Body Mass Index 26.24 06/21/2022 12:25 PM CDT Plan of Treatment Health Maintenance Due Date Last Done Comments DTAP/TDAP/TD VACCINES (1 - Tdap) 02/01/1967 PNEUMOCOCCAL VACCINE 50+ YEA RS (1 of 1 - PCV) 02/01/1998 ZOSTER VACCINE (1 of 2) 02/01/1998 RSV VACCINE (60+ or ) (1 - 1-dose 75+ series) 02/01/2023 INFLUENZA VACCINE (#1) 2024 COVID-19 Vaccine (2 - 2023-2 5 season) 2024 02/19/2021 COLORECTAL SCREENING Discontinued 01/21/2019, 01/22/20 19 Colorectal Cancer Screening Discontinued OSTEOPOROSIS SCREENING Completed 2, 04/21/2019, 12/23/2016 FIT-DNA Q 3 years Discontinued FIT/FOBT Q 1 year Discontinued Flex Sig/CT Colonography Q 5 years Discontinued Insurance [address] [place] [address] MEDICARE PART A AND B [facility] [id number] MEDICARE PART A AND B [facility] [id number] Member Subscriber Plan / Payer (Ef fective 2021-Present) Name:Lisa Bond Relation to Subscriber:Self Name:Lisa Bond Payer ID:[id number] (NAIC) Group ID:Not on file Type:Supplemental Address: [place] [id number] Care Teams Stitch Cleaner Relationship Specialty Start Date End Date Lenka Gaspar MD PCP - General Family Practice 04/16/18
== END 2025-01-24 09:37 | disposition home or self-care (01) ==
LOC: ANHIMG 09:38
PROVIDERS: PCP Family Medicine; Visit Provider Surgery
DX: K43.2 Incisional hernia without obstruction or gangrene (principal); K44.9 Diaphragmatic hernia without obstruction or gangrene
CPT/HCPCS: 74150

== ENCOUNTER 2025-02-04 08:17 | Outpatient (CLI) | payer MEDICARE, SELFPAY ==
--- NOTE | 2025-02-04 08:36 | ECG_ITS ---
Test Date: 2025-02-04 09:04:56 Measurements Intervals [place] Rate: 61 P: 51 [place]: 171 QRS: 10 QRSD: 93 T: 23 QT: 413 QTc: 419 Interpretive Statements SINUS RHYTHM No previous ECG available for comparison Electronically Signed On 02-04-2025 18:33:15 CDT by Tyree Santillan M.D.
== END 2025-02-04 08:18 | disposition home or self-care (01) ==
LOC: ANHSURGERY 08:25
PROVIDERS: PCP Family Medicine; Visit Provider Surgery
DX: Z01.818 Encounter for other preprocedural examination (principal); E78.2 Mixed hyperlipidemia; I10 Essential (primary) hypertension
CPT/HCPCS: 93005

== ENCOUNTER 2025-02-14 01:50 | Day surgery (SDC) | payer MEDICARE, SELFPAY ==
[2025-02-03 15:24] VITALS: BMI 25.6
--- NOTE | 2025-02-03 15:45 | PC.NURSE ---
Report to the Outpatient Waiting Room, entrance under the green pavilion located off [facility], at time __11:30am on date _02/14/25 . Planned Procedure Time: _0930am .? Time changes happen often and if your time is changed the preop area will call you the afternoon before. - You and your visitor will be asked to self-screen and do not enter if you have any COVID symptoms. Please call surgeon if you need to reschedule. - A mask is optional within the hospital at this time. Patients may have clear liquids (water, carbonated beverages, clear teas, apple juice) until 3 hours prior to surgery with a maximum of 20 ounces. - No food from midnight until time of surgery and no smoking, or chewing tobacco (or any form of nicotine). No chewing gum, candy or mints. (0830am) Take only the following medications with a SIP of water on the morning of surgery: ___Levothyroxine, Alprazolam if Needed . DO NOT STOP ANY OF YOUR OTHER PRESCRIPTION MEDICATIONS PRIOR TO SURGERY EXCEPT THE FOLLOWING Hold all vitamins and supplements for 3 days per anesthesiologist. Date of last dose 02/10/25 Medications to discontinue per physician None Date to take last dose None Please no make-up, nail latvian, hairspray, perfume, deodorant, or body powder the day of surgery.? No jewelry (including any body piercings) or valuables the day of surgery, leave them at home.? Please take a shower or bath the night before, or the morning of, surgery with an antibacterial soap.? Wear comfortable, loose fitting clothing.? - Jewelry must be removed prior to entering the operating room.? Rings and piercings that are not removed may be cut off. - The hospital will not accept responsibility for valuables.? - Please leave all valuables, including medications, at home the day of surgery. If you are going home after surgery, a licensed milk delivery driver must drive you home.? - NO public transportation without another adult if you receive anesthesia. - We recommend that an adult stay with you for 24 hours following discharge. - We also recommend that you do not drive, make important decision, drink alcoholic beverages, or take any drugs that were not prescribed by your health care provider for at least 24 hours after your discharge time. Follow any additional instructions given to you from your surgeon. Telephone instructions given to _Patient and asked if any additional questions and then verbalized understanding. Patient advised to call surgeon office or pre surgery nurse liaison [phone] if any additional questions.
[2025-02-14] VITALS (11 sets, daily range): BP systolic 142–165; BP diastolic 60–90; PULSE 61–85; RESP 14–20; TEMP 36.3–36.7; O2SAT 95–100
--- OUTSIDE RECORDS SUMMARY | 2025-02-14 01:54 | XMS_ITS | Referral Summary ---
Author Organization [facility] Address [address] [place] [address] Care Team Providers Care Database Developer Name Role Phone Sumanth Ayala MD Primary Care Provider Encounters Date Type Department Care Team Description 02/04/[address] [facility] Gastroenterology [address] [facility] 12th [place] [address] [place] [address] Nicole Keller Marie 02/03/2025 Results Follow-Up [facility] Complete Care [address] [place] [address] Medical Office Building [address], [address] [place] [address] Amalia Macedo MD 01/31/2025 12:45 PM CDT - 01/31/2025 1:45 PM CDT Surgery [facility] Digestive Disease [address] [place] [address] Amalia Macedo MD COLON BIOPSY 01/31/2025 12:41 PM CDT Anesthesia Event [facility] [address] [place] [address] Calixto Madsen MD 01/31/2025 11:18 AM CDT - 01/31/2025 2:22 PM CDT Hospital Encounter [facility] Dig[facility] Disease [address] [place] [address] Amalia Macedo MD History of colon polyps; Pena's esophagus without dysplasia Discharge Disposition: Discharge to home or self care 01/26/2025 Telephone [facility] Specialty Services [address] [place] [address] Radha Cope RN GI Preprocedure 01/24/2025 Telephone [facility] Specialty Services [address] [place] [address] Radha Cope RN GI Preprocedure 12/17/2024 Orders Only [facility] [address] [facility] [place] [facility] [address] [place] [address] Amalia Macedo MD History of colon polyps (Primary Dx); Pena's esophagus without dysplasia 12/17/[address] [facility] Gastroenterology [address] [facility] 12th [place] [address] [place] [address] Nicole Keller RMA COLON/EGD (GI Pre Procedure Assessment: the colonoscopy/EGD is scheduled on 01-31-25 @ 12:[address] Macedo at the [facility]Kaylin Split Dose Prep Instructions were sent through Power[employer] today, per patient.) from Last 3 Months [...] AT 6:30 AM. 4000 mL 5 Active omeprazole (PriLOSEC) 40 mg capsule Take 1 capsule (40 mg total) by mouth daily 5 Active Active Problems Problem Noted Date Diagnosed Date History of colon polyps 12/17/2024 Pena's esophagus without dysplasia 12/07/2021 Overview (12/07/2021): Added automatically from request for surgery [id number] History of COVID-19 07/26/2021 Non-rheumatic mitral regurgitation 12/07/2020 Family history of premature coronary artery dise ase 09/13/2020 KWONG (dyspnea on exertion) 09/13/2020 Hypothyroidism 09/13/2020 Hiatal hernia 06/01/2018 Overview (06/01/2018): Added automatically from request for surgery [id number] Varicose veins of lower extremity 09/12/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 2-4 times a month 01/31/2025 Q2: How many drinks containi ng alcohol do you have on a typical day when you are drinking? 1 or 2 01/31/2025 Q3: How often do you have si x or more drinks on one occasion? Never 01/31/2025 Personal Safety Answer Date Recorded Have you ever been in or are you currently in a harmful physical or emotional relationship or is someone making you feel afraid or unsafe? 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 Gender Identity Not on file Sexual Orientation Not on file Last Filed Vital Signs Vital Sign Reading Time Taken Comments Blood Pressure 142/81 01/31/2025 1:55 PM CDT Pulse 74 01/31/2025 1:55 PM CDT Temperature 36.4 C (97.5 F) 01/31/2025 1:35 PM CDT Respiratory Rate 15 01/31/2025 1:55 PM CDT Oxygen Saturation 100% 01/31/2025 1:55 PM CDT Inhaled Oxygen Concentration - - Weight 71.7 kg (158 lb) 01/31/2025 12:21 PM CDT Height 167.6 cm (5' 6 ) 01/31/2025 12:21 PM CDT Body Mass Index 25.5 01/31/2025 12:21 PM CDT Plan of Treatment Not on file Procedures Procedure Name Priority Date/Time Associated Diagnosis Comments SURGICAL PATHOLOGY Routine 01/31/2025 12:53 PM CDT History of colon polyps Pena's esophagus without dysplasia ESOPHAGOGASTRODUODENOSCOPY BIOPSY 01/31/2025 12:41 PM CDT History of colon polyps Pena's esophagus without dysplasia COLON BIOPSY 01/31/2025 12:41 PM CDT History of colon polyps Pena's esophagus without dysplasia EGD 01/31/2025 11:44 AM CDT COLONOSCOPY 01/31/2025 11:44 AM CDT from Last 3 Months Results * Surgical pathology (01/31/2025 12:53 PM CDT) Tissue (Esophageal biopsy) 01/31/2025 12:53 PM CDT Tissue (Esophageal biopsy) 01/31/2025 12:55 PM CDT Tissue (Colon, Biopsy) 01/31/2025 1:19 PM CDT Tissue (Colon, Biopsy) 01/31/2025 1:25 PM CDT Narrative PATHOLOGY [facility] - 2025 1:10 PM CDT EPIC results best viewed via link to PDF [facility] [place] [address] Note to Patients: This report may contain a detailed description of human tissue sent by a health care provider to the laboratory for pathologic evaluation. The content of this report is essential for diagnosis and may provide important critical findings. This information may be unfamiliar to patients to review without a medical professional present. It is advised that the patient review this report in the presence of a health care provider who can answer questions and explain the details. SURGICAL PATHOLOGY REPORT FINAL Patient Name: LISA LUCIANO Gender: F : 1950 (Age: 74) Address: [address] [place] [id number] Hospital #: [id number] Taken:01/31/2025 Received:01/31/2025 Reported: 2025 Patient Type: [facility] Service: Gastro Location: Physician(s): Emily Mae M.D. Diagnosis: A. Esophagus at 31-33 cm, biopsy - Squamocolumnar mucosa with extensive intestinal metaplasia and focal active esophagitis. - No dysplasia identified. B. Esophagus at 34-36 cm, biopsy - Cardio fundic-type mucosa with extensive intestinal metaplasia and reactive epithelial changes. - No dysplasia identified. C. Right colon, biopsy - Colonic mucosa with no significant pathologic change. D. Colon, colitis , biopsy - Colonic mucosa with crypt abscess, marked lamina propria lymphoplasmacytic inflammation, Paneth cell metaplasia, and architectural distortion. - See comment. adbo/02/02/2025 13:10 By this signature, I attest that the above diagnosis is based upon my personal examination of the slides(and/or other material indicated in the diagnosis). Uli Friedman M.D. Report Electronically Reviewed and Signed Out By Uli Friedman M.D. 2025 13:10:04 Diagnosis Comment Part D: In the setting of diverticulosis, these findings may represent segmental colitis associated with diverticulosis. The differential diagnosis includes infection, evolving inflammatory bowel disease (not favored), and idiopathic etiologies. History: The patient is a 74-year-old woman presenting with a history of colon polyps; Carlos's esophagus without dysplasia. Operative procedure: Colon biopsy; upper endoscopy with biopsy. Specimen(s) Received: A: Cold biopsy esophagus 31-33 B: Cold biopsy esophagus 34-36 C: Cold biopsy right colon D: Cold biopsy colitis Gross Description: Received in four formalin jars labeled with the patient's identifiers. A. Labeled esophagus 31-33 and consists of multiple burrell-red fragment(s) of soft tissue measuring 1.8 x 0.8 x 0.2 cm in aggregate. Labeled A1. Jar 0. B. Labeled esophagus 34-36 and consists of multiple burrell and burrell-red fragment(s) of soft tissue measuring 1.3 x 0.7 x 0.1 cm in aggregate. Labeled B1. Jar 0. C. Labeled right colon and consists of multiple burrell fragment(s) of soft tissue measuring 1.0 x 0.8 x 0.1 cm in aggregate. Labeled C1. Jar 0. D. Labeled colitis and consists of multiple burrell fragment(s) of soft tissue measuring 1.3 x 0.5 x 0.2 cm in aggregate. Labeled D1. Jar 0. sxst/01/31/2025 15:47 PA(s): Zeinab Daniels By this signature, I attest that the above diagnosis is based upon my personal examination of the slides(and/or other material). Addenda/Procedures The performance characteristics of some immunohistochemical stains, fluorescence in-situ hybridization tests and immunophenotyping by flow cytometry cited in this report (if any) were determined by the Surgical Pathology and Flow Cytometry Departments at [facility] as part of an ongoing machined parts quality inspector program and in compliance with federally mandated regulations drawn from the Clinical Laboratory Improvement Act of 1988 (CLIA '88). Some of these tests rely on the use of analyte specific reagents and are subject to specific labeling requirements by the US Food and Drug Administration. Such diagnostic tests may only be performed in a facility that is certified by the Department of Health and Human Services as a high complexity laboratory under CLIA '88. The FDA has determined that such clearance or approval is not necessary. This test is used for clinical purposes. It should not be regarded as investigational or for research. Nevertheless, federal rules concerning the medical use of analyte specific reagents require that the following disclaimer be attached to the report: This test was developed and its performance characteristics determined by the Surgical Pathology and Flow Cytometry Departments of [facility]. It has not been cleared or approved by the U. S. Food and Drug Administration. IMAGES AND SCANNED DOCUMENTS, IF INCLUDED, ONLY VIEWABLE IN PDF VERSION OF REPORT us Amalia Macedo MD LAB PATHOLOGY ORDERABLES Final Result PATHOLOGY [facility] 3rd Floor [place], [place] [phone] * EGD (01/31/2025 11:44 AM CDT) Anatomical Region Laterality Modality Other Narrative Procedure Note Amalia Macedo MD - 01/31/2025 11:44 AM CDT GI ENDOSCOPY [facility] Patient Name: Lisa Luciano Procedure Date: 01/31/2025 11:44 AM Date of : 1950 Admit Type: Outpatient Age: 74 Gender: Female Attending MD: Amalia Macedo M.D. Room: [facility] ENDOSCOPY ROOM 9 Note Status: Finalized Procedure: Upper GI endoscopy Indications: Follow-up of Pena's esophagus with no dysplasia, occasional breakthrough heartburn on once daily PPI and status post fundoplication. Referring MD: Sumanth Ayala M.D. Providers: Amalia Macedo M.D. Medicines: Monitored Anesthesia Care Complications: No immediate complications. Estimated Blood Loss: Estimated blood loss: none. Procedure: Pre-Anesthesia Assessment: - Immediately prior to administration ofmedications, the patient was re-assessed for adequacy to receive sedatives. The benefits, risks, and alternatives to theprocedure and sedation were discussed and informed consentwas obtained. The scope was passed under direct vision. The [id number] endoscope was introduced through the mouth, and advanced to the second partof duodenum. The upper GI endoscopy was accomplished without difficulty. The patient tolerated the procedure well. Findings: The esophagus and gastroesophageal junction were examined with white light and narrow band imaging (NBI). There were esophageal mucosal changes classified as Pena's stage C2-M4 per [place] criteria.These changes involved the mucosa at the upper extent of the gastric folds(36 cm from the incisors) extending to the Z-line (32 cm from theincisors). No visible abnormalities were present. The maximum longitudinalextent of these esophageal mucosal changes was 4 cm in length. Mucosa was biopsied with a cold forceps for histology. A total of 2 specimen bottles were sent to pathology. A 1 cm hiatal hernia was present. The examined duodenum was normal. Impression: - Esophageal mucosal changes classified asBarrett's stage C2-M4 per [place] criteria. Biopsied. - 1 cm hiatal hernia. - Normal examined duodenum. Recommendation: - Await pathology results. - Repeat upper endoscopy in 3 years forsurveillance based on pathology results, if no dysplasia. - Consider twice daily PPI to treat breakthrough heartburn. Attending Participation: I personally performed the entire procedure. Electronically signed by Amalia Macedo MD Amalia Macedo M.D. 01/31/2025 1:44:07 PM . Number of Addenda: 0 Note Initiated On: 01/31/2025 11:44 AM us Amalia Macedo MD ENDOSCOPY PROCEDURES Final Res ult * Colonoscopy (01/31/2025 11:44 AM CDT) Anatomical Region Laterality Modality Other Narrative Procedure Note Amalia Macedo MD - 01/31/2025 11:44 AM CDT GI ENDOSCOPY [facility] Patient Name: Lisa Luciano Procedure Date: 01/31/2025 11:44 AM Date of : 1950 Admit Type: Outpatient Age: 74 Gender: Female Attending MD: Amalia Macedo M.D. Room: [facility] ENDOSCOPY ROOM 9 Note Status: Finalized Procedure: Colonoscopy Indications: Surveillance: Personal history of colonic polyps (unknown histology) on colonoscopy more than 5years ago, Last colonoscopy: January 2019 Referring MD: Sumanth Ayala M.D. Providers: Amalia Macedo M.D. Medicines: Monitored Anesthesia [...] theprocedure and sedation were discussed and informed consentwas obtained. All questions were answered. Please referto the signed informed consent document in the medical record. The scope was passed under direct vision.The [id number] endoscope was introduced through the anus and advanced to the terminal ileum. The colonoscopy was performed without difficulty. The patient tolerated the procedure well. The qualityof the bowel preparation was evaluated using the BBPS ([place] Bowel Preparation Scale) with scores of:Right Colon = 3, Transverse Colon = 3 and Left Colon = 3 (entire mucosa seen well with no residual staining, small fragments of stool or opaque liquid). Thetotal BBPS score equals 9. The bowel preparation used was polyethylene glycol (PEG) via split doseinstruction. The quality of the bowel preparation wasexcellent. Findings: Multiple small and large-mouthed diverticula were found in the entire colon. A segmental area (5 cm in length) of mildly erythematous and granular mucosa was found in the sigmoid colon. Biopsies were taken with acold forceps for histology. Small non-bleeding internal hemorrhoids were found on retroflexion. Impression: - Diverticulosis in the entire examined colon. - Erythematous and granular mucosa in the sigmoid colon. Biopsied. Recommendation: - Await pathology results. - Return to primary care physician as previously scheduled. Would not suggest further colonoscopyfor screening purposes. Attending Participation: I personally performed the entire procedure. Electronically signed by Amalia Macedo MD Amalia Macedo M.D. 01/31/2025 1:40:44 PM . Number of Addenda: 0 Note Initiated On: 01/31/2025 11:44 AM us Amalia Macedo MD ENDOSCOPY PROCEDURES Final Res ult from Last 3 Months Insurance MEDICARE [facility] MEDICARE [facility] MEDICARE [facility] Advance Directives For more information, please contact: [phone] * Full Code (Latest Code Status on File) Date Activated Date Inactivated Comments 01/31/2025 12:22 PM 01/31/2025 6:22 PM * Full Code Date Activated Date Inactivated Comments 01/28/2022 10:05 AM 01/28/2022 3:57 PM * Full Code Date Activated Date Inactivated Comments 01/21/2019 11:42 AM 01/21/2019 6:42 PM * Full Code Date Activated Date Inactivated Comments 07/06/2018 3:57 PM 07/08/2018 1:28 PM * Full Code Date Activated Date Inactivated Comments 06/24/2018 8:35 AM 06/24/2018 12:53 PM Care Teams Database Developer Relationship Specialty Start Date End Date Sumanth Ayala MD [address] [facility] [address] [place] [address] PCP - General Family Medicine 12/17/24
--- OUTSIDE RECORDS SUMMARY | 2025-02-14 01:54 | XMS_ITS | Encounter Summary ---
Author Organization [facility] Address [address] [place] [address] Phone Care Team Providers Care Health Actuary Name Role Phone Sumanth Ayala MD Primary Care Provider Encounter Details Date Type Department Care Team (Late st Contact Info) Description 02/03/2025 Results Follow-Up [facility] Care [address] [place] [address] Medical Office Building [address], [address] [place] [address] Amalia Macedo MD [address] [place], [place] [id number] Social History Tobacco Use Types Packs/Day Years [...] on file 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
--- OUTSIDE RECORDS SUMMARY | 2025-02-14 01:54 | XMS_ITS | Clinical Summary ---
Author Organization [facility] Address [facility] [place] [address] Care Team Providers Care Activity Specialist Name Role Phone Unavailable Primary Care Provider [...]
--- OUTSIDE RECORDS SUMMARY | 2025-02-14 01:54 | XMS_ITS | Clinical Summary ---
Author Organization [facility] Address [address] [place] [address] Care Team Providers Care Feather Washer Name Role Phone Sumanth Ayala MD Primary [...] (12/07/2021): Added automatically from request for surgery [id number] History of COVID-19 07/26/2021 Non-rheumatic mitral regurgitation 12/07/2020 Family history of premature coronary artery dise ase 09/13/2020 KWONG (dyspnea on exertion) 09/13/2020 Hypothyroidism 09/13/2020 Hiatal hernia 06/01/2018 Overview (06/01/2018): Added automatically from request for surgery [id number] Varicose veins of lower extremity 09/12/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 09/12/2015 Hypertension 06/23/2015 Hyperlipidemia 06/23/2015 Encounters Date Type Department Care Team Description 02/04/2025 Telephone [facility] [address] [facility] 12th [place] [address] [place] [address] Nicole Keller RMA 02/03/2025 Results Follow-Up [facility] [address] [place] [address] Medical Office Building [address], [address] [place] [address] Amalia Macedo MD 01/31/2025 12:45 PM CDT - 01/31/2025 1:45 PM CDT Surgery [facility] [address] [place] [address] Amalia Macedo MD COLON BIOPSY 01/31/2025 12:41 PM CDT Anesthesia Event [facility] [address] [place] [address] Calixto Madsen MD 01/31/2025 11:18 AM CDT - 01/31/2025 2:22 PM CDT Hospital Encounter [facility] [address] [place] [address] Amalia Macedo MD History of colon polyps; 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 Discharge Disposition: Discharge to home or self care 01/26/2025 Telephone [facility] [address] [place] [address] Radha Cope, RN GI Preprocedure 01/24/2025 Telephone [facility] [address] [place] [address] Radha Cope RN GI Preprocedure 12/17/2024 Orders Only [facility] [address] [address] [place] [address] Amalia Macedo MD History of colon polyps (Primary Dx); 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 12/17/2024 Telephone [facility] [address] [facility] [address] [facility] 12th [place] [address] [place] [address] Nicole Keller RMA COLON/EGD (GI Pre Procedure Assessment: the colonoscopy/EGD is scheduled on 01-31-25 @ 12:[address] 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 Gender Identity Not on file Sexual Orientation [...] 01/31/2025 12:21 PM CDT Plan of Treatment Health Maintenance Due Date Last Done Comments Depression Screening 1950 Hepatitis C Screening 1950 Osteoporosis Screening-Bone Density Scan 1950 DTaP/Tdap/Td Vaccine (1 - Tdap) 02/01/1959 Hepatitis B Screening 02/01/1966 Pneumococcal vaccine 65+ (1 of 1 - PCV) 02/01/1998 Zoster Vaccine (1 of 2) 02/01/1998 Well Visit 65+ 02/01/2013 Covid-19 Vaccine (2 - season) 07/18/202403/2021 Influenza Vaccine (#1) 2024 Fall Risk Assessment 01/31/2026 01/31/2025 Colon Cancer Screening-CT Colonography Discontinued , 01/21/2019 Colon Cancer Screening-Colonoscopy Discontinued 2024, 01/21/2019 Colon Cancer Screening-DNA Stool Discontinued 02/01/20 25, 01/21/2019 Colon Cancer Screening-FIT Discontinued 01/31/2025, Colon Cancer Screening-FOBT Discontinued 01/31/2025, 0 01/21/2019 Colon Cancer Screening-Sigmoidoscopy Discontinued 01/15, 01/21/2019 Colorectal Cancer Screening Discontinued Procedures Procedure Name Priority Date/Time Associated Diagnosis Comments SURGICAL PATHOLOGY Routine 01/31/2025 12:53 PM CDT History of colon polyps 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 ESOPHAGOGASTRODUODENOSCOPY BIOPSY 01/31/2025 12:41 PM CDT History of colon polyps 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 COLON BIOPSY 01/31/2025 12:41 PM CDT History of colon polyps 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 EGD 01/31/2025 11:44 AM CDT COLONOSCOPY 01/31/2025 11:44 AM CDT from Last 3 Months Results * Surgical pathology (01/31/2025 12:53 PM CDT) Tissue (Esophageal biopsy) 01/31/2025 12:53 PM CDT Tissue (Esophageal biopsy) 01/31/2025 12:55 PM CDT Tissue (Colon, Biopsy) 01/31/2025 1:19 PM CDT Tissue (Colon, Biopsy) 01/31/2025 1:25 PM CDT Narrative PATHOLOGY BJ - 2025 1:10 PM CDT EPIC results best viewed via link to PDF [facility] [place] [address] Note to Patients: This report may contain [...] Gender: F : 1950 (Age: 74) Address: [address] [place], [place] [address] Hospital #: [id number] Taken:01/31/2025 Received:01/31/2025 Reported: 2025 Patient Type: MEDISYS [...] Surgical Pathology and Flow Cytometry Departments at [facility] as part of an ongoing corporate quality assurance manager program and in compliance with federally mandated [...] Surgical Pathology and Flow Cytometry Departments of [facility]. It has not been cleared or approved by the U. S. Food and Drug Administration. IMAGES AND SCANNED DOCUMENTS, IF INCLUDED, ONLY VIEWABLE IN PDF VERSION OF REPORT us Amalia Macedo MD LAB PATHOLOGY ORDERABLES Final Result PATHOLOGY [facility] 3rd Floor [place], [place] [phone] * EGD (01/31/2025 11:44 AM CDT) Anatomical Region Laterality Modality Other Narrative Procedure Note Amalia Macedo MD - 01/31/2025 11:44 AM CDT GI ENDOSCOPY [facility] Patient Name: Lisa Luciano Procedure Date: 01/31/2025 11:44 AM Date of : 1950 Admit Type: Outpatient Age: 74 Gender: Female Attending MD: Amalia Macedo M.D. Room: [facility] ENDOSCOPY ROOM 9 Note Status: Finalized Procedure: Upper GI endoscopy Indications: Follow-up of Lind's esophagus with no dysplasia, occasional breakthrough heartburn [...] There were esophageal mucosal changes classified as Lind's stage C2-M4 per Eldred criteria.These changes involved the mucosa at the [...] mucosal changes classified asBarrett's stage C2-M4 per Eldred criteria. Biopsied. - 1 cm hiatal hernia. [...] Female Attending MD: Amalia Macedo M.D. Room: [facility] ENDOSCOPY ROOM 9 Note Status: Finalized Procedure: [...] The scope was passed under direct vision.The [id number] endoscope was introduced through the anus and advanced to the terminal ileum. The colonoscopy was performed without difficulty. The patient tolerated the procedure well. The qualityof the bowel preparation was evaluated using the BBPS ([place] Bowel Preparation Scale) with scores of:Right Colon [...] ult from Last 3 Months Insurance MEDICARE [facility] Member Subscriber Plan / Payer ( fective 2017-Present) Name:iLsa Luciano Relation to Subscriber:Self Name:Lisa Luciano Payer ID:[id number] Group ID:[id number] Type:COMMERCIAL Address: [place] [id number] MEDICARE [facility] MEDICARE [facility] Advance Directives For more information, please contact: [phone] * Full Code (Latest Code Status on [...] 8:35 AM 06/24/2018 12:53 PM Care Teams Feather Washer Relationship Specialty Start Date End Date Sumanth Ayala MD [address] [address] PCP - General Family Medicine 12/17/24
--- OUTSIDE RECORDS SUMMARY | 2025-02-14 01:54 | XMS_ITS | Clinical Summary ---
Author Organization [facility] Address [address] [address] Care Team Providers Care Career Placement Specialist Name Role Phone Lenka Gaspar MD Primary Care Provider [phone] Allergies Active Allergy Reactions Criticality Noted Date [...] Q 5 years Discontinued Insurance [address] [place] [address] MEDICARE PART A AND B [facility] [id number] MEDICARE PART A AND B [facility] [id number] Member Subscriber Plan / Payer (Ef fective 2021-Present) Name:Lisa Bond Relation to Subscriber:Self Name:Lisa Bond Payer ID:[id number] (NAIC) Group ID:Not on file Type:Supplemental Address: [place] [id number] Care Teams Career Placement Specialist Relationship Specialty Start Date End Date Lenka Gaspar MD PCP - General Family Practice 04/16/18
--- OUTSIDE RECORDS SUMMARY | 2025-02-14 01:55 | XMS_ITS | Data Portability ---
Author Organization [facility] [employer] Address [address] [address] Assessment Encounter Date Assessment Date Assessment LastModified [...] By Organization Details Last Modified Time 10/09/2016 [id number] low back arthritis: exercises Not available 10/17/2016 [...] SNOMED-CT Code Diagnosis ICD10 Code Diagnosis Note 93862 Jeanie Smith [facility] [address] [place] [address] 10/09/2016 13:29:46 10/09/2016 14:53:10 Hip pain 45348348 M25.551 Low back pain 353004417 M54.5 Knee pain 14653676 M25.5 61 Osteoarthr itis of knee 439926483 M17.11 Lumbar spo ndylosis with myelopathy 75442487 M47.16 Health Concerns Section Related Observation LastModified by Organization Detai ls LastModified Time None Recorded Concern Status LastModified by Organization Details LastModified Time None Recorded Advance Directives Directive None Recorded Payers Encounter Date Sequence Insurance Name Policy Number Policy Hayden Covered Member ID Hayden Member ID Guarantor Name 10/09/2016 2 [employer] - OPTIONS Lisa Bond [id number] Lisa Bond 10/09/2016 1 [place] Lisa Bond [id number] Lisa Bond Notes Date Note Type Note [...] gym several times a week. Jeanie Smith [address] [place] [address], [place], [address], [facility], [facility] 10/21/2016 10:52:22 OBGyn Episode No OBEpisode recorded.
--- OUTSIDE RECORDS SUMMARY | 2025-02-14 01:55 | XMS_ITS | CONTINUITY OF CARE DOCUMENT ---
Author Name alicia aaronedwin Address Unknown Organization [facility] Address [address] [place] [address] Phone [phone] Care Team Providers Care Computer Numerical Control Programmer Name Role Phone Nixon Middleton MD Unavailable [phone] SHANNAN OWEN MD Unavailable SHANNAN OWEN MD Unavailable PROBLEMS Condition Status Date Provider Notes Cardiology examination active Nixon Michele Hypertension active Nixon Middleton MD Chronic venous hypertension (idiopathic) with inflammation of bilateral lower extremity active Nixon Middleton MD Cardiac murmur active Nixon Middleton MD ENCOUNTERS Date Type Provider Location Encounter Diag nosis 1 - 1 In-person encounter Office Visit Nixon Middleton MD [facility] Office 8 - 8 In-person encounter Office Visit Nixon Middleton MD [place] [facility] Cardiology examinationHypertensionChronic venous hypertension (idiopathic) with [...] Payer name Policy type / Coverage type [employer] green party ID [place] AARP Commercial insurance company [id number] [place] [id number] ADVANCE DIRECTIVES Name Date DISCUSSED - NO DECISION MADE TREATMENT PLAN Date Name Performer [id number],C, BP is elevated and she will contact Dr. Kern, her shipping checker. 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 She tried support stockings without success. We discussed venography with IVUS and Venaseal . AT this time she prefers not to have a procedure. Nixon Middleton MD [id number],C, B P today: 157/103 Julio Rai [id number],C,W ill obtain arterial venous duplex for further assessment. If she has significant venous insufficiency, we will consider venography/IVUS and venaseal. Julio Rai Cardiology: BP is el evated and she will contact Dr. Kern, her shipping checker. BP today: 140/88 P rior BP: 157/103 [...]
--- NOTE | 2025-02-14 07:15 | WPDHPUPDATE1 ---
History and Physical Update Update Date/Time: 02/14/25 07:15 History and Physical has been reviewed, including an updated exam of the patient. There are NO changes in the patient's condition. Risks, benefits, and alternatives have been discussed and questions answered. Patient agrees to proceed with procedure.
--- NOTE | 2025-02-14 07:56 | P.PNAN_ITS ---
Anes - Initial Pre Proc Eval Procedure: Operation Date: 02/14/25 11:30 Proposed Procedures p Robotic Assisted Incisional Hernia Repair with Mesh - Karen Crews MD Date/Time: 02/14/25 07:56 Surgeon: Karen Crews MD Pre Op Diagnosis: incisional hernia Patient Data Age: 75 Gender: F Height: 1.68 m Weight: 72 kg Allergies Allergy/AdvReac Type Severity Reaction Status Date / Time Sulfa (Sulfonamide Allergy Mild not Verified 02/14/25 10:17 Antibiotics) feeling well Home Medications ?Medication ?Instructions ?Recorded ?Confirmed ?Type alprazolam 0.25 mg tablet 0.25 mg PO BID PRN anxiety #60 tabs 09/22/23 02/03/25 Rx losartan 25 mg tablet 25 mg PO BID #180 tabs 06/29/24 02/03/25 Rx atorvastatin 10 mg tablet See Rx Instructions .Route 07/03/24 02/03/25 Rx .COMPLEX #90 tabs omeprazole 40 mg capsule,delayed 40 mg PO DAILY #100 caps 07/09/24 02/03/25 Rx release levothyroxine 100 mcg tablet See Rx Instructions .Route 11/04/24 02/03/25 Rx .COMPLEX #90 tabs famotidine 20 mg tablet (Pepcid) 20 mg PO DAILY PRN stomach upset 01/19/25 02/03/25 History Patient hx anesthesia problems: none Family hx anesthesia problems: none Results Review: All pre-operative results and documents have been reviewed as part of the pre- operative evaluation. [facility] Past Medical History Medical History (Updated 02/14/25 @ 07:57 by Anibal Arshad DO) Emphysema lung Pena's esophagus Mitral regurgitation Mixed hyperlipidemia Benign essential HTN Vitiligo Hiatal hernia with gastroesophageal reflux Barretts esophagus Surgical History Surgical History (Updated 01/19/25 @ 10:46 by Sabiha Cuello CMA) History of Jenifer fundoplication 2019 Dr. Mckeon H/O vein stripping Family History Family History Father Cerebrovascular accident, Onset Age: 58 Patient's father is Mother Family history of malignant neoplasm of ovary Patient's mother is Other Ovarian ca Social History Social History (Reviewed 01/19/25 @ 10:13 by Olimpia Bergeron Social History: Smoking packs per day: 1 Smoking cigarettes per day: 20.0 Years smoked: 15 Smoking pack-years: 15.00 Smoking status: Former smoker Second hand tobacco smoke exposure: No Smoking end date: 11/17/78 Alcohol intake: current Alcohol use details: 1 per month Substance use: never Substance use type: does not use Do You Feel Safe in your Home?: Yes Lack of Transportation: No Lack of Food: Never True Current Housing: I Have Housing Concerned About Future Housing: No Difficulty Paying Gas/Electric Bills: No Difficulty Paying for Meds: No Currently Unemployed: YES Education: Decline to Answer Difficulty w/ Childcare or Family Care: No Living arrangements: with friend(s) Occupation/Education: retired Gender identity (if verbalized by the patient): Female Sexual Orientation (if Verbalized by the Patient): Straight or Heterosexual Spiritual care concerns: No Anes - Eval Final PreProcedure Day of Procedure 02/14/25 07:56 Patient weight: overweight Heart: regular rate and rhythm Lungs: clear to auscultation Airway: Mallampati scale class II Neurological: alert and oriented Last oral intake: >/= 8 hours ASA classification: III Emergent: no Anesthetic plan: proceed Anesthesia type and monitoring: general ETT and standard monitoring Results Review: All pre-operative results and documents have been reviewed as part of the pre- operative evaluation. Informed Consent: The patient's anesthetic plan and its attendant risks and benefits were discussed with the patient/family/POA. Questions were solicited and answers provided to the satisfaction of the patient/family/POA.
[2025-02-14] MEDS: LACTATED RINGERS 1,000 ML 30 ML IV CONT ×2 (10:00→14:53)
[2025-02-14] MEDS: KETOROLAC 15 MG/ML VIAL (*BKC) IV PUSH (10:05)
[2025-02-14] MEDS: ACETAMINOPHEN 500 MG TABLET 1000 MG PO (10:05)
[2025-02-14] MEDS: ceFAZolin 2 GM/D5W 50 ML 2 GM/50 ML BAG IVPB (11:48)
[2025-02-14] MEDS: BUPIVACAINE/EPINEPHRINE 0.5% 50 ML VIAL 30 ML INFILTRATE (12:27)
--- NOTE | 2025-02-14 13:02 | W.PM.PROC2 ---
Procedure Note - Detailed Date of Procedure 02/14/25 Pre-op Diagnosis incisional hernia, umbilical hernia Post-op Diagnosis Same Procedure Performed robotic assisted incisional and umbilical hernia repair with total defect length measuring approximately 5 cm Surgeon Karen Crews MD Anesthesia General and Local Indications 75-year-old female presenting with a incisional hernia from previous minimally invasive hiatal hernia repair Findings incisional hernia superior to the umbilicus measuring approximately 2.5 cm, small umbilical defect measuring 1 cm, area between defects measuring 1.5 cm Description of Procedure The patient was taken the operating room placed in the supine position. After adequate induction of general anesthesia, the patient was prepped and draped in normal sterile fashion. A time-out was then done to verify the patient's identity as well as the procedure being performed. I began by making a 8 mm incision in the left upper quadrant. Through this, a Veress needle was placed into the peritoneal cavity and CO2 gas was insufflated. After adequate pneumoperitoneum was achieved, a 8 mm trocar was placed through this incision. I then placed the laparoscope through this trocar site and under direct visualization I placed a 8 mm port in the left mid abdomen as well as an additional 8 mm port in the left lower abdomen. The robot was then docked to the 3 port sites. I then went to the robotic console. I began by identifying the hernia. A moderate-sized incisional hernia was noted in the supraumbilical region. Using graspers, I was able to reduce this hernia. The hernia was noted to contain a small amount of preperitoneal fat. Once reduced, I also reduced and dissected out the hernia sac. I then closed the approximately 2.5 cm defect with 0 strata fix suture. A 2nd defect was noted and the umbilicus. This defect was much smaller and was also incarcerated was some preperitoneal fat. This area was also reduced and closed with 0 Stratafix suture. I then placed a 10 x 15 cm Ventralight mesh into the abdominal cavity. The positional stitch was placed in the middle of the mesh and brought up centering the mesh over the larger incisional defect. Once this was done, I used 2 0 V lock suture x 2 to circumferentially suture the mesh to the abdominal. Once the mesh was completely sutured in, I was happy with our tension-free repair. The mesh was noted to have good overlap of the defects. At this point, the robot was undocked and all ports were removed. All port sites were then closed with 4 O Monocryl subcuticular suture. The patient tolerated the procedure well, is extubated in the operating room postoperative, and transferred to the recovery room in stable condition. Implants 10 x 15 Ventralight mesh Estimated Blood Loss 10 Drains No Packing No Pathology None sent Complications No immediate complications Condition Stable Disposition PACU [facility] Billing Surgery - Charge Forward: Surgery Billing
[2025-02-14] MEDS: fentaNYL CITRATE INJ (*CRX) 100 MCG/2 ML VIAL 25 MCG IV PUSH ×8 (13:12→14:00)
[2025-02-14] MEDS: oxyCODONE HCL (*CRX) 5 MG TAB IR PO (14:33)
[2025-02-14] MEDS: HYDROmorphone HCL INJ (*CRX) 1 MG/ML SYR 0.5 MG IV PUSH ×2 (14:52→15:18)
== END 2025-02-14 15:50 | disposition home or self-care (01) ==
PROVIDERS: PCP Family Medicine; Visit Provider Surgery
PROC: (CPT 49593; principal; 2025-02-14 11:30)
DX: K43.2 Incisional hernia without obstruction or gangrene (principal); K42.9 Umbilical hernia without obstruction or gangrene; E78.2 Mixed hyperlipidemia; I10 Essential (primary) hypertension; J43.9 Emphysema, unspecified; I34.0 Nonrheumatic mitral (valve) insufficiency; Z79.1 Long term (current) use of non-steroidal anti-inflammatories (NSAID); Z98.890 Other specified postprocedural states; Z87.891 Personal history of nicotine dependence; Z87.19 Personal history of other diseases of the digestive system; Z80.41 Family history of malignant neoplasm of ovary; Z82.49 Family history of ischemic heart disease and other diseases of the circulatory system
CPT/HCPCS: 49593; S2900; 36415; 86850; 86900; 86901; A9270; C1781; J0690; J1100; J1171; J1885; J2003; J2250; J2405; J2704; J3010; J7120

== ENCOUNTER 2025-02-28 12:14 | Outpatient (CLI) | payer MEDICARE, SELFPAY ==
--- NOTE | ~2025-02-28 | XR_ITS ---
XR abdomen/kub 1V Ordering provider: Sumanth Ayala MD History: . R10.9 - Unspecified abdominal pain . Comparison: None. FINDINGS: BOWEL: Nonobstructive bowel gas pattern. ORGANOMEGALY: None. SIGNIFICANT PATHOLOGIC CALCIFICATIONS: None. OTHER: No free air is seen under the diaphragm. Degenerative changes of the spine. IMPRESSION: NO ACUTE ABDOMINAL FINDINGS. Reviewed, dictated and finalized at location A.
[2025-02-28 12:45] LABS: Basophils Percent Auto 0.3 % (0.2-1.2); Eosinophils Absolute Auto 0.6 K/mm3 (0-0.3); Eosinophils Percent Auto 8.6 % (0-4.4); Hematocrit 43.3 % (37.0-47.0); Immature Granulocyte Absolute 0.02 K/mm3 (0.00-0.031); Immature Granulocyte Percent A 0.3 % (0-0.5); Lymphocytes Absolute Auto 1.53 K/mm3 (0.9-3.2); Lymphocytes Percent Auto 22.6 % (18.3-44.2); Mean Corpuscular HGB Conc 32.3 g/dl (32-36); Mean Corpuscular Hemoglobin 29.5 pg (26-34); Mean Corpuscular Volume 91.4 fl (80-100); Mean Platelet Volume 9.7 fl (7.4-10.4); Monocytes Absolute Auto 0.6 K/mm3 (0.1-0.6); Neutrophils Percent Auto 59.2 % (45.5-73.1); Platelet Count Result 316 k/mm3 (150-375); Red Blood Count 4.74 M/mm3 (4.2-5.4); Red Cell Distribution Width 13.2 % (11.5-14.5); White Blood Count 6.8 K/mm3 (4.5-10.0)
[2025-02-28 13:13] LABS: Alanine Aminotransferase 52 U/L (6-35); Albumin Level 4.3 g/dL (3.5-5.1); Alkaline Phosphatase 174 U/L (38-126); Amylase 49 U/L (30-110); Anion Gap 9 mmol/L (4-12); Aspartate Amino Transferase 26 U/L (14-36); Bilirubin,Total 0.7 mg/dL (0.2-1.3); Blood Urea Nitrogen 25 mg/dL (7-17); Calcium 9.2 mg/dL (8.4-10.2); Carbon Dioxide 28 mmol/L (22-30); Chloride 97 mmol/L (98-107); Estimated Glomerular Filt Rate 54; Glucose 107 mg/dL (65-110); Lipase 15 U/L (23-300); Potassium 4.1 mmol/L (3.4-5.0); Sodium 134 mmol/L (137-145)
--- OUTSIDE RECORDS SUMMARY | 2025-02-28 13:28 | XMS_ITS | CONTINUITY OF CARE DOCUMENT ---
Author Name alicia aaronedwin Address Unknown Organization [facility] Address [address] [place] [address] Phone [phone] Care Team Providers Care Glue Bone Drier Name Role Phone Nixon Middleton MD Unavailable [phone] SHANNAN OWEN MD Unavailable [phone] SHANNAN OWEN MD Unavailable PROBLEMS Condition Status Date Provider Notes Cardiology examination active Nixon Michele Hypertension active Nixon Middleton MD Chronic venous hypertension (idiopathic) with inflammation of bilateral lower extremity active Nixon Middleton MD Cardiac murmur active Nixon Middleton MD ENCOUNTERS Date Type Provider Location Encounter Diag nosis 1 - 1 In-person encounter Office Visit Nixon Middleton MD [facility] Office 8 - 8 In-person encounter Office Visit Nixon Middleton MD [place] [facility] Cardiology examinationHypertensionChronic venous hypertension (idiopathic) with [...] Com ments losartan 25 mg tablet active Rosmeary Bryant atorvastatin 10 mg tablet active Rosemary [...] Payer name Policy type / Coverage type [place] red alliance party ID [place] AARP Commercial insurance company [id number] [place] [id number] ADVANCE DIRECTIVES Name Date DISCUSSED - NO DECISION MADE TREATMENT PLAN Date Name Performer [id number],C, BP is elevated and she will contact Dr. Kern, her truck driver helper. 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 She tried support stockings without success. We discussed venography with IVUS and Venaseal . AT this time she prefers not to have a procedure. Nixon Middleton MD [id number],C, B P today: 157/103 Julio Rai [id number],C,W ill obtain arterial venous duplex for further assessment. If she has significant venous insufficiency, we will consider venography/IVUS and venaseal. Julio Rai Cardiology: BP is el evated and she will contact Dr. Kern, her truck driver helper. BP today: 140/88 P rior BP: 157/103 [...]
--- OUTSIDE RECORDS SUMMARY | 2025-02-28 13:28 | XMS_ITS | Clinical Summary ---
Author Organization [facility] Address [facility] [address] [place] [address] Care Team Providers Care Administrative Medical Director Name Role Phone Unavailable Primary Care Provider [...] 02/01/1998 Dexa Scan (General) 02/01/2013 Pneumococcal Vaccine: 50+ Ye ars (1 of 1 - PCV) 02/01/2013 RSV Immunization or 60+ Years (1 - 1-dose 75+ series) 02/01/2023 COVID-19 Vaccine (2023-2 5 season) 2024 Meningococcal B Vaccine Aged Out No l onger eligible based on patient's age to complete this topic Meningococcal Vaccine Aged Out No carlos rod eligible based on patient's age to complete this topic RSV Immunizations Under 20 Months Aged Out No longer eligible based on patient's age to complete this topic
--- OUTSIDE RECORDS SUMMARY | 2025-02-28 13:28 | XMS_ITS | Clinical Summary ---
Author Organization [facility] Address [address] [address] Care Team Providers Care Fish Tender Name Role Phone Lenka Gaspar MD Primary Care Provider [phone] Allergies Active Allergy Reactions Criticality Noted Date [...] Q 5 years Discontinued Insurance [address] [place] [address] MEDICARE PART A AND B [facility] [id number] MEDICARE PART A AND B [facility] [id number] Member Subscriber Plan / Payer (Ef fective 2021-Present) Name:Lisa Bond Relation to Subscriber:Self Name:Lisa Bond Payer ID:[id number] (NAIC) Group ID:Not on file Type:Supplemental Address: [place] [id number] Care Teams Fish Tender Relationship Specialty Start Date End Date Lenka Gaspar MD PCP - General Family Practice 04/16/18
== END 2025-02-28 12:15 | disposition home or self-care (01) ==
PROVIDERS: PCP Family Medicine; Visit Provider Family Medicine
DX: R11.0 Nausea (principal); R11.10 Vomiting, unspecified; R10.9 Unspecified abdominal pain
CPT/HCPCS: 36415; 74018; 80053; 82150; 83690; 85025

== ENCOUNTER 2025-05-09 14:16 | Outpatient (CLI) | payer MEDICARE, SELFPAY ==
--- NOTE | ~2025-05-09 | MM_ITS ---
EXAMINATION: MM screening hugo BI w nury HISTORY: Screening mammogram, family history of breast cancer in her sister. TECHNIQUE: Craniocaudal and mediolateral oblique 3-D tomosynthesis images were obtained and synthetic 2-D images were generated. CAD analysis was submitted and interpreted. COMPARISON: 04/13/2024, 03/20/2023, 01/02/2022, 10/13/2020 BREAST PARENCHYMAL COMPOSITION:Dense: The breasts are heterogeneously dense, which may obscure small masses. FINDINGS: No suspicious mass, calcification, or architectural distortion are identified in either estrada ast to suggest malignancy. There has been no suspicious interval change. IMPRESSION: No mammographic evidence of malignancy. Recommend routine screening mammography in one year. BI-RADS Category 1: Negative Reviewed, dictated and finalized at location .
--- NOTE | ~2025-05-09 | DEXA_ITS ---
Bone Density Report Name: ANAND LUCIANO Age: 75 Sex: Female Ethnicity: White Date of : 1950 Indication: postmenopausal; screening for osteoporosis; Referring Provider: Sumanth Ayala Study: Bone densitometry was performed. Exam Date: May 09, 2025 Accession number: [id number] Bone Density: Region BMD T-score Z-score Classification AP Spine(L1-L4) 0.941 -1.0 1.6 Normal Femoral Neck (Left) 0.666 -1.6 0.5 Osteopenia Total Hip (Left) 0.886 -0.5 1.4 Normal Femoral Neck (Right) 0.683 -1.5 0.7 Osteopenia Total Hip (Right) 0.835 -0.9 1.0 Normal Femoral Neck Mean 0.675 -1.6 0.6 Osteopenia Total Hip Mean 0.861 -0.7 1.2 Normal World Health Organization criteria for BMD impression classify patients as: Normal (T-score at or above -1.0), Osteopenia (T-score between -1.0 and -2.5), or Osteoporosis (T-score at or below -2.5). 10-year Fracture Risk(1): Major Osteoporotic Fracture 13% Hip Fracture 3.0% Reported Risk Factors: [place] (), Neck BMD=0.666, BMI=25.6 (1) FRAX(R) Version 3.08. Fracture probability calculated for an untreated patient. Fracture probability may be lower if the patient has received treatment. Clinical Information Provided by Patient: Has used the following medications: Vitamin D Patient maximum height was 66 Menopause Age: 51 Does not regularly consume dairy products Drinks caffeinated beverages Onset of menses at age 10 Impression: The patient has low bone mass, based on the Left Femoral Neck T-score. Discussion: BONE DENSITY IS LOW AT ONE OR MORE SKELETAL SITES. This patient's lowest T-score is low at one or more skeletal sites. It meets the World Health Organization's (WHO) criteria for ?low bone mass? (T-score between -1.0 and -2.5). The patient's 10-year risk of fracture as calculated by FRAX is less than the threshold where pharmacological therapy is recommended by the National Osteoporosis Foundation (NOF). However, all treatment decisions require clinical judgment and consideration of individual patient factors, including patient preferences, comorbidities, previous drug use, risk factors not captured in the FRAX model (e.g., frailty, falls, vitamin D deficiency, increased bone turnover, interval significant decline in bone density) and possible under or overestimation of fracture risk by FRAX. The patient should follow a healthful lifestyle (good nutrition with adequate calcium and vitamin D, and appropriate weight-bearing exercise). Follow-Up: Consider repeating this study in 2 to 3 years to reassess this patient's status, or sooner if there is some new clinical indication. Reported by: DAIANA on 05/10/2025 3:12:00 PM. Reviewed, dictated and finalized at location A.
== END 2025-05-09 14:17 | disposition home or self-care (01) ==
LOC: CHSIMG 14:18
PROVIDERS: PCP Family Medicine; Visit Provider Family Medicine
DX: Z12.31 Encounter for screening mammogram for malignant neoplasm of breast (principal); Z78.0 Asymptomatic menopausal state; E03.9 Hypothyroidism, unspecified; M85.89 Other specified disorders of bone density and structure, multiple sites
CPT/HCPCS: 36415; 77063; 77067; 77080; 84443

== ENCOUNTER 2025-05-13 00:39 | Day surgery (SDC) | payer MEDICARE, SELFPAY ==
[2025-05-10 15:16] VITALS: BMI 24.9
--- NOTE | 2025-05-10 15:42 | PC.NURSE ---
Report to the Outpatient Waiting Room, entrance under the green pavilion located off [facility], at time ___7:45AM____ on date ___05/13/25____. Planned Procedure Time: __9:45AM .? Time changes happen often and if your time is changed the preop area will call you the afternoon before. - You and your visitor will be asked to self-screen and do not enter if you have any COVID symptoms. Please call surgeon if you need to reschedule. - A mask is optional within the hospital at this time. Patients may have clear liquids (water, carbonated beverages, clear teas, apple juice) until 3 hours prior to surgery (6:45AM) with a maximum of 20 ounces. - No food from midnight until time of surgery and no smoking, or chewing tobacco (or any form of nicotine). No chewing gum, candy or mints. Take only the following medications with a SIP of water on the morning of surgery: ____LEVOTHYROXINE MAY TAKE ONDANSETRON NEEDED FOR NAUSEA DO NOT STOP ANY OF YOUR OTHER PRESCRIPTION MEDICATIONS PRIOR TO SURGERY EXCEPT THE FOLLOWING Hold all vitamins and supplements for 3 days per anesthesiologist. Medications to discontinue per physician NONE Date to take last dose Please no make-up, nail sinhala, hairspray, perfume, deodorant, or body powder the day of surgery.? No jewelry (including any body piercings) or valuables the day of surgery, leave them at home.? Please take a shower or bath the night before, or the morning of, surgery with an antibacterial soap.? Wear comfortable, loose fitting clothing.? Children are encouraged to wear pajamas. - Jewelry must be removed prior to entering the operating room.? Rings and piercings that are not removed may be cut off. - The hospital will not accept responsibility for valuables.? - Please leave all valuables, including medications, at home the day of surgery. If you are going home after surgery, a licensed sanitation truck driver must drive you home.? - NO public transportation without another adult if you receive anesthesia. - We recommend that an adult stay with you for 24 hours following discharge. - We also recommend that you do not drive, make important decision, drink alcoholic beverages, or take any drugs that were not prescribed by your health care provider for at least 24 hours after your discharge time. For Pediatric surgeries, we recommend two adults accompany the child home. Follow any additional instructions given to you from your surgeon. Telephone instructions given to ___PATIENT and asked if any additional questions and then verbalized understanding. Patient advised to call surgeon office or pre surgery nurse liaison [phone] if any additional questions.
--- NOTE | 2025-05-11 06:47 | P.HP_ITS ---
H&P: HPI History of Present Illness Date/Time: 05/11/25 06:47 Chief Complaint: Postmenopausal bleeding Narrative: 75-year-old female admitted for hysteroscopy dilatation curettage secondary to postmenopausal. Patient has never taken hormones. She had some mild postmenopausal bleeding. Ultrasound showed the endometrial lining to measure 5mm with some small cystic areas. In light of this exceeding the thickness expected we will undergo hysteroscopy dilatation curettage risks and benefits reviewed a complete harvey Review of Systems Review of Systems: Gen.: Denies fevers or chills ENT: Denies congestion Respiratory: Denies shortness of breath or cough CV: Denies chest pain or palpitations GI: HPI denies burning, urgency, frequency or hematuria Musculoskeletal: Denies back pain or muscle pain Neuro: Denies numbness, tingling, weakness or focal weakness Skin: Denies rash Except as documented, all other systems reviewed and negative FORMERLY [facility], 1928–1983 Past Medical History Medical History Emphysema lung Pena's esophagus Mitral regurgitation Mixed hyperlipidemia Benign essential HTN Vitiligo Hiatal hernia with gastroesophageal reflux Barretts esophagus Surgical History Surgical History History of incisional hernia repair 02/14/25 incisional hernia, umbilical hernia, Dr Crews History of Jenifer fundoplication 2019 Dr. Mckeon H/O vein stripping Family History Family History Father Cerebrovascular accident, Onset Age: 58 Patient's father is Mother Family history of malignant neoplasm of ovary Patient's mother is Other Ovarian ca Social History Social History Social History: Smoking packs per day: 1 Smoking cigarettes per day: 20.0 Years smoked: 10 Smoking pack-years: 10.00 Smoking status: Former smoker Tobacco type: cigarettes Second hand tobacco smoke exposure: No Smoking end date: 05/17/75 Alcohol intake: current Alcohol use details: 1 per month Substance use: never Substance use type: does not use Current Housing: Decline to Answer Concerned About Future Housing: Decline to Answer Difficulty Paying Gas/Electric Bills: Decline to Answer Difficulty Paying for Meds: Decline to Answer Currently Unemployed: Decline to Answer Education: Decline to Answer Difficulty w/ Childcare or Family Care: No Living arrangements: with family Additional living arrangements comments: S.O. Occupation/Education: retired Gender identity (if verbalized by the patient): Female Sexual Orientation (if Verbalized by the Patient): Straight or Heterosexual Spiritual care concerns: No Meds Home Medications and Allergies Home Medications ?Medication ?Instructions ?Recorded ?Confirmed ?Type atorvastatin 10 mg tablet See Rx Instructions .Route 07/03/24 05/10/25 Rx .COMPLEX #90 tabs famotidine 20 mg tablet (Pepcid) 20 mg PO HS stomach upset 01/19/25 05/10/25 History ondansetron 4 mg disintegrating 4 mg PO Q6H PRN nausea and 02/28/25 05/10/25 Rx tablet vomiting #14 tabs losartan 50 mg tablet 50 mg PO ONCE #90 tabs 04/05/25 05/10/25 Rx ibuprofen 200 mg capsule 400 mg PO Q6H PRN pain 05/10/25 05/10/25 History levothyroxine 100 mcg tablet 100 mcg PO QAM 05/10/25 05/10/25 History omeprazole 40 mg capsule,delayed 40 mg PO DAILY PRN GERD 05/10/25 05/10/25 History release Allergies Allergy/AdvReac Type Severity Reaction Status Date / Time Sulfa (Sulfonamide AdvReac Mild Nausea Verified 05/10/25 15:11 Antibiotics) Exam Const: General: cooperative, healthy appearing and comfortable Nutritional Appearance: average body habitus Orientation/consciousness: oriented to person, oriented to place and oriented to time Resp: Effort & Inspection: normal respiratory effort Cardio: Rate: regular rate Rhythm: regular rhythm Heart sounds: S1 normal heart sound present and S2 normal heart sound present GI: Inspection: normal to inspection : External Female Exam: normal external appearance Speculum Exam - Vagina: normal appearance of the vagina Speculum Exam - Cervix: normal appearance of the cervix Bimanual exam- vagina & uterus: soft Bimanual Exam- Adnexa, other: normal adnexae Assessment and Plan Assessment and plan (1) Postmenopausal bleeding: Code(s): N95.0 - Postmenopausal bleeding Status: Acute Plan Will proceed with hysteroscopy/dilatation curettage
--- NOTE | 2025-05-13 06:16 | WPDHPUPDATE1 ---
History and Physical Update Update Date/Time: 05/13/25 06:16 History and Physical has been reviewed, including an updated exam of the patient. There are NO changes in the patient's condition. Risks, benefits, and alternatives have been discussed and questions answered. Patient agrees to proceed with procedure.
[2025-05-13 07:41] VITALS: BP 135/68; PULSE 70; RESP 16; TEMP 36.4; O2SAT 99; BMI 24.7
[2025-05-13] MEDS: LACTATED RINGERS 1,000 ML 30 ML IV CONT (08:00)
[2025-05-13] MEDS: ACETAMINOPHEN 500 MG TABLET 1000 MG PO (08:20)
--- NOTE | 2025-05-13 08:40 | P.PNAN_ITS ---
Anes - Initial Pre Proc Eval Procedure: Operation Date: 05/13/25 09:45 Proposed Procedures p Hysteroscopy Dilation and Curettage - Reymundo Bravo MD Date/Time: 05/13/25 08:40 Surgeon: Reymundo Bravo MD Pre Op Diagnosis: post menopausal bleeding Patient Data Age: 75 Gender: F Height: 1.68 m Weight: 69.5 kg Last Vital Signs Temp 36.4 C 05/13/25 07:41 Pulse 70 05/13/25 07:41 Resp 16 05/13/25 07:41 BP 135/68 05/13/25 07:41 Pulse Ox 99 05/13/25 07:41 O2 Del Method Room Air 05/13/25 07:41 Allergies Allergy/AdvReac Type Severity Reaction Status Date / Time Sulfa (Sulfonamide AdvReac Mild Nausea Verified 05/13/25 07:58 Antibiotics) Home Medications ?Medication ?Instructions ?Recorded ?Confirmed ?Type atorvastatin 10 mg tablet See Rx Instructions .Route 07/03/24 05/13/25 Rx .COMPLEX #90 tabs famotidine 20 mg tablet (Pepcid) 20 mg PO HS stomach upset 01/19/25 05/13/25 History ondansetron 4 mg disintegrating 4 mg PO Q6H PRN nausea and 02/28/25 05/10/25 Rx tablet vomiting #14 tabs losartan 50 mg tablet 50 mg PO ONCE #90 tabs 04/05/25 05/13/25 Rx ibuprofen 200 mg capsule 400 mg PO Q6H PRN pain 05/10/25 05/13/25 History levothyroxine 100 mcg tablet 100 mcg PO QAM 05/10/25 05/13/25 History omeprazole 40 mg capsule,delayed 40 mg PO DAILY PRN GERD 05/10/25 05/13/25 History release hydrocodone 5 mg-acetaminophen 325 1 tablet PO Q4H PRN pain #14 tabs 05/13/25 Rx mg tablet Patient hx anesthesia problems: none Family hx anesthesia problems: none Results Review: All pre-operative results and documents have been reviewed as part of the pre- operative evaluation. COUNT INCLUDES THE [facility] Past Medical History Medical History Emphysema lung Pena's esophagus Mitral regurgitation Mixed hyperlipidemia Benign essential HTN Vitiligo Hiatal hernia with gastroesophageal reflux Barretts esophagus Surgical History Surgical History History of incisional hernia repair 02/14/25 incisional hernia, umbilical hernia, Dr Crews History of Jenifer fundoplication 2019 Dr. Mckeon H/O vein stripping Family History Family History Father Cerebrovascular accident, Onset Age: 58 Patient's father is Mother Family history of malignant neoplasm of ovary Patient's mother is Other Ovarian ca Social History Social History Social History: Smoking packs per day: 1 Smoking cigarettes per day: 20.0 Years smoked: 15 Smoking pack-years: 15.00 Smoking status: Former smoker Second hand tobacco smoke exposure: No Smoking end date: 11/17/78 Alcohol intake: current Alcohol use details: 1 per month Substance use: never Substance use type: does not use Current Housing: Decline to Answer Concerned About Future Housing: Decline to Answer Difficulty Paying Gas/Electric Bills: Decline to Answer Difficulty Paying for Meds: Decline to Answer Currently Unemployed: Decline to Answer Education: Decline to Answer Difficulty w/ Childcare or Family Care: No Living arrangements: with friend(s) Occupation/Education: retired Gender identity (if verbalized by the patient): Female Sexual Orientation (if Verbalized by the Patient): Straight or Heterosexual Spiritual care concerns: No Anes - Eval Final PreProcedure Day of Procedure 05/13/25 08:40 Patient weight: normal Heart: regular rate and rhythm Lungs: clear to auscultation Airway: Mallampati scale class II Neurological: alert and oriented Last oral intake: >/= 8 hours ASA classification: III Emergent: no Anesthetic plan: proceed Anesthesia type and monitoring: general GIVS and standard monitoring Results Review: All pre-operative results and documents have been reviewed as part of the pre- operative evaluation. Informed Consent: The patient's anesthetic plan and its attendant risks and benefits were discussed with the patient/family/POA. Questions were solicited and answers provided to the satisfaction of the patient/family/POA.
[2025-05-13] MEDS: LIDOCAINE 1% LOCAL INJ 10 ML VIAL INFILTRATE (09:54)
--- NOTE | 2025-05-13 10:01 | S_PTH ---
PATIENT: Lisa Bond LOC: [facility] U#:[id number] AGE/SX: 75/F ROOM: RE05/13/[address]: Reymundo Bravo MD : 1950 BED: DIS: 05/13/2025 SPEC #: [id number] RECD: 05/13/25 13:26 STATUS: SWETHA REQ #: [id number] PRINCE: 05/13/25 10:[address]: Reymundo Angel DEPT: [facility] Surgical RECD BY: Linda Marshall ENTERED: 05/13/25 13:27 SP TYPE: Surgical OTHR DR: Sumanth Ayala MD Tissues: A - Endometrial Curettings Procedures: Hematoxylin and Eosin Stain Gross and Microscopic Level 4
--- NOTE | 2025-05-13 10:08 | W.PM.PROC2 ---
Procedure Note - Detailed Date of Procedure 05/13/25 Pre-op Diagnosis post menopausal bleeding Post-op Diagnosis Same Procedure Performed Hysteroscopy/polypectomy/dilatation and curettage Surgeon Reymundo Bravo MD Anesthesia MAC and Local Indications 75-year-old female with postmenopausal Findings Posterior surface of uterus with a polypoid lesion Description of Procedure The patient was prepped and draped in the normal sterile fashion placed in the dorsal lithotomy position. Under excellent IV sedation weighted speculum placed in posterior fornix of vagina. Anterior lip of the cervix grasped with a single-tooth tenaculum. 2.5cc of 1% xylocaine anesthesia placed at 2, 4, 8:10 a.m. of the cervix. Uterus sounded to 8cm. Serial dilatation with fragmented dilators performed followed by passage of the 5mm visualizing hysteroscope using normal saline as visualizing medium. A polypoid lesion was seen on the posterior surface of the uterus. Using the reticulating device this was removed in toto. The uterus scraped over entire 360?. The instruments withdrawn patient was awakened. She went recovery in satisfactory condition. All sponge, needle, instrument counts were correct. There were immediate complications Estimated Blood Loss 5 Drains No Packing No Pathology Yes Complications No immediate complications Condition Stable Disposition PACU
[2025-05-13 10:09] VITALS: BP 116/64; PULSE 65; RESP 14; O2SAT 98
[2025-05-13] MEDS: FAMOTIDINE 20 MG/2 ML VIAL IV PUSH (10:28)
[2025-05-13 10:30] VITALS: BP 116/64; PULSE 65; RESP 20
[2025-05-13] MEDS: oxyCODONE HCL (*CRX) 2.5 MG TAB IR PO (10:40)
[2025-05-13 11:00] VITALS: BP 116/60; PULSE 65; RESP 20
== END 2025-05-13 11:11 | disposition home or self-care (01) ==
PROVIDERS: PCP Family Medicine; Visit Provider Obstetrics & Gynecology
PROC: 0U5B8ZZ Destruction of Endometrium, Via Natural or Artificial Opening Endoscopic (ICD-10-PCS; CPT 58563; principal; 2025-05-13 09:45)
DX: N84.0 Polyp of corpus uteri (principal); J43.9 Emphysema, unspecified; E78.2 Mixed hyperlipidemia; I10 Essential (primary) hypertension; K21.9 Gastro-esophageal reflux disease without esophagitis; I34.0 Nonrheumatic mitral (valve) insufficiency; Z79.1 Long term (current) use of non-steroidal anti-inflammatories (NSAID); Z79.891 Long term (current) use of opiate analgesic; Z98.890 Other specified postprocedural states; Z87.891 Personal history of nicotine dependence; Z87.19 Personal history of other diseases of the digestive system; Z80.41 Family history of malignant neoplasm of ovary; Z82.49 Family history of ischemic heart disease and other diseases of the circulatory system
CPT/HCPCS: 58558; 88305; A9270; J2003; J2405; J2704; J3010; J7120